=== PATIENT | female | born 1975 | race Caucasian/White ===

== ENCOUNTER 2016-12-31 11:22 | Inpatient (IN) | payer OTHER ==
[2016-12-31 11:38] VITALS: BMI 32.3
--- NOTE | 2016-12-31 13:37 | HP ---
Admission ROS [facility] Chief Complaint: "I want to get clean." Patient is here for Rehab for Alcohol and Cannabis. Allergies/Adverse Reactions: Allergies Allergy/AdvReac Type Severity Reaction Status Date / Time No Known Allergies Allergy Verified 12/31/16 12:53 Exam Limitations: No Limitations - Ebola screening Have you traveled outside of the country in the last 21 days: No Have you had contact with anyone from an Ebola affected area: No Have you been sick,other than usual withdrawal symptoms: No Do you have a fever: No - Review of Systems Constitutional: Chills, Diaphoresis, Fever, Malaise, Night Sweats, Changes in sleep EENT: reports: No Symptoms Reported Respiratory: reports: No Symptoms reported Cardiac: reports: Palpitations GI: reports: Other (GERD.) : reports: No Symptoms Reported Musculoskeletal: reports: Back Pain, Joint Pain, Neck Pain, Joint Stiffness Integumentary: reports: No Symptoms Reported Neuro: reports: Headache (Occasional.), Numbness (Bilateral Elbows.), Tremors ( Bilateral Elbows.) Endocrine: reports: No Symptoms Reported Hematology: reports: Anemia (Iron Deficiency.), Easy Bruising Psychiatric: reports: Judgement Intact, Mood/Affect Appropiate, Orientated x3, Anxious, Depressed (On meds.) Other Systems: Reviewed and Negative Patient History - Patient Medical History Hx Anemia: Yes (Iron-Deficency (Received infusions Q 3 months previously).) Hx Asthma: No Hx Chronic Obstructive Pulmonary Disease (COPD): No Hx Cancer: No Hx Cardiac Disorders: No Hx Congestive Heart Failure: No Hx Hypertension: Yes (On med.) Hx Hypercholesterolemia: Yes (On med.) Hx Pacemaker: No HX Cerebrovascular Accident: No Hx Seizures: No Hx Dementia: No Hx Diabetes: No Hx Gastrointestinal Disorders: Yes (acid reflux) Hx Liver Disease: No (History of Abnormal Liver Enzymers due to medications.) Hx Genitourinary Disorders: No Hx Sexually Transmitted Disorders: No Hx Renal Disease (ESRD): No Hx Thyroid Disease: No Hx Human Immunodeficiency Virus (HIV): No (Last Tested: 07/2016: NEGATIVE.) Hx Hepatitis C: No (Last Tested: 07/2016: NEGATIVE.) Hx Depression: Yes (On meds.) Hx Suicide Attempt: No (PATIENT DENIES CURRENT SI / HI.) Hx Bipolar Disorder: No Hx Schizophrenia: No Other Medical History: DENIES. - Patient Surgical History Past Surgical History: Yes Hx Neurologic Surgery: No Hx Cataract Extraction: No Hx Cardiac Surgery: No Hx Lung Surgery: No Hx Breast Surgery: No Hx Breast Biopsy: No Hx Abdominal Surgery: Yes (hysterectomy in 04/27/2014) Hx Appendectomy: Yes (in 10/1985) Hx Cholecystectomy: No Hx Genitourinary Surgery: No Hx Section: No Hx Orthopedic Surgery: No Anesthesia Reaction: No - PPD History Previous Implant?: Yes Documented Results: Negative w/o proof Implanted On Prior R Admission?: No PPD to be Administered?: Yes - Reproductive History Patient is a Female of Child Bearing Age (11 -55 yrs old): Yes Last Menstrual Period: 04/13/14 Patient : No - Smoking Cessation Smoking history: Current every day smoker Have you smoked in the past 12 months: Yes Aproximately how many cigarettes per day: 15 Cigars Per Day: 0 Hx Chewing Tobacco Use: No Initiated information on smoking cessation: Yes 'Breaking Loose' booklet given: 12/31/16 (GIVEN ON UNIT.) - Substance & Tx. History Hx Alcohol Use: Yes Hx Substance Use: Yes Substance Use Type: Alcohol, Marijuana Hx Substance Use Treatment: Yes (No Previous Detox/Rehab admissions. Attends [facility].) - Substances Abused Alcohol-beer/liquor Route: Oral Frequency: Daily Amount used: 1-6 pk./3 shots Age of first use: 19 Date of Last Use: 12/20/16 Marijuana Route: Smoking Frequency: Daily Amount used: $ 40 Age of first use: 19 Date of Last Use: 08/13/16 Family Disease History - Family Disease History Family Disease History: Diabetes: Grandparent (CHF), Heart Disease: Grandparent , CA: Grandparent, Father (Leukemia; Depression.), Mother (Breast Ca; Depression.), Brother (Pancreatic Ca.), Other: Father, Mother Admission Physical Exam [facility] - Vital Signs Vital Signs: Vital Signs - 24 hr 12/31/16 11:36 Temperature 98.9 F Pulse Rate 88 Respiratory 18 Rate Blood Pressure 133/80 - Physical General Appearance: Yes: No Apparent Distress, Nourished, Appropriately Dressed , Anxious HEENTM: Yes: Hearing grossly Normal, Normocephalic, Normal Voice, DESIREE, Pharynx Normal Respiratory: Yes: Chest Non-Tender, Lungs Clear, No Respiratory Distress, No Accessory Muscle Use Neck: Yes: No masses,lesions,Nodules, Supple, Trachea in good position Breast: Yes: Breast Exam Deferred Cardiology: Yes: Regular Rhythm, Regular Rate, S1, S2 Abdominal: Yes: Normal Bowel Sounds, Non Tender, Soft, Protuberent Genitourinary: Yes: Within Normal Limits Back: Yes: Decreased Range of Motion Musculoskeletal: Yes: Gait Steady, Back pain, Joint Stiffness Extremities: Yes: Normal Capillary Refill Neurological: Yes: Fully Oriented, Alert, Normal Mood/Affect, Normal Response Integumentary: Yes: Normal Color, Dry, Warm Lymphatic: Yes: Within Normal Limits - Diagnostic (1) Alcohol dependence, uncomplicated Current Visit: Yes Status: Chronic (2) Cannabis dependence, uncomplicated Current Visit: Yes Status: Chronic (3) Fibromyalgia Current Visit: Yes Status: Chronic (4) Hypertension Current Visit: Yes Status: Chronic Qualifiers: Hypertension type: essential hypertension Qualified Code(s): I10 - Essential (primary) hypertension (5) History of iron deficiency anemia Current Visit: Yes Status: Chronic (6) Hypercholesterolemia Current Visit: Yes Status: Chronic (7) GERD (gastroesophageal reflux disease) Current Visit: Yes Status: Chronic Qualifiers: Esophagitis presence: esophagitis presence not specified Qualified Code(s) : K21.9 - Gastro-esophageal reflux disease without esophagitis (8) History of depression Current Visit: Yes Status: Chronic (9) Elevated blood uric acid level Current Visit: Yes Status: Chronic Cleared for Admission S - Detox or Rehab Claeared for Rehab Admission: Yes [facility] Breath Alcohol Content Breath Alcohol Content: 0 Urine Pregancy Test - Result Urine Test Results: Negative- NO Line Present Urine Drug Screen - Results Drug Screen Negative: Yes
[2016-12-31] MEDS ORDERED: LOPERAMIDE HCL 2 MG CAPSULE PO PRN (14:05)
[2016-12-31] MEDS ORDERED: MAGNESIUM CITRATE 300 ML BOTTLE PO PRN (14:05)
[2016-12-31] MEDS ORDERED: P-EPHED 60MG/TRIPROLIDI 2.5MG TABLET PO PRN (14:05)
[2016-12-31] MEDS ORDERED: MENTHOL/PHENOL 1 EACH UD MM PRN (14:05)
[2016-12-31] MEDS ORDERED: hydrOXYzine PAMOATE 25 MG CAPSULE (FP) PO PRN (14:05)
[2016-12-31] MEDS ORDERED: MAGNESIUM HYDROX 2400MG/30ML ORAL SUSPENSION 30 ML CUP PO PRN (14:05)
[2016-12-31] MEDS ORDERED: guaiFENesin/D-METHORPHAN HB 10 ML UNIT-DOSE CUPS PO PRN (14:05)
[2016-12-31] MEDS ORDERED: IBUPROFEN 400 MG TABLET (FP) PO PRN (14:05)
--- NOTE | 2016-12-31 15:48 | HP ---
Psychiatrist Admission - Data Date of interview: 12/31/16 Admission source: Drug court Identifying data: This is the first admission to [address] [place] [address] for this 41 YEARS OLD CHILDLESS FEMALE,RESIDES WITH PARENTS,SUPPORTED Y FAMILY. Medical History: Significant for Anemia,HTN,Fibromialgia,Hyperlipidemia. Psychiatric History: Patient reports first contact with psychiatrist about 15 years ago on outpatient basis to address depression,drinking problems.No suicidal attempts,no psychiatric admisssions.Patient sees psychiatrist at [facility].Medications:Buspar,Zoloft and Seroquel. Physical/Sexual Abuse/Trauma History: denies Vital Signs: Vital Signs - 24 hr 12/31/16 12/31/16 11:36 15:05 Temperature 98.9 F 97.8 F Pulse Rate 88 86 Respiratory 18 19 Rate Blood Pressure 133/80 118/82 Allergies/Adverse Reactions: Allergies Allergy/AdvReac Type Severity Reaction Status Date / Time No Known Allergies Allergy Verified 12/31/16 12:53 Date of last physical exam: 12/31/16 Concur with the findings of this exam: Yes - Substance Abuse/Tx History Hx Alcohol Use: Yes (reports drinking since 19 yo,1-6 packs and 3 shots daily) Hx Substance Use: Yes (marijuana since 19 yo,$40 daily) Substance Use Type: Alcohol, Marijuana Hx Substance Use Treatment: Yes ([facility]) Mental Status Exam - Mental Status Exam Alert and Oriented to: Time, Place, Person Cognitive Function: Grossly Intact Patient Appearance: Well Groomed Mood: Sad Affect: Mood Congruent Patient Behavior: Cooperative Speech Pattern: Clear Voice Loudness: Normal Thought Process: Goal Oriented Thought Disorder: Not Present Hallucinations: Denies Suicidal Ideation: Denies Homicidal Ideation: Denies Insight/Judgement: Fair Sleep: Fair Appetite: Good Muscle strength/Tone: Normal Gait/Station: Normal Psychiatric Findings - Problem List ([place] 1, 2,3) (1) Alcohol dependence, uncomplicated Current Visit: Yes Status: Chronic (2) Cannabis dependence, uncomplicated Current Visit: Yes Status: Chronic (3) Fibromyalgia Current Visit: Yes Status: Chronic (4) GERD (gastroesophageal reflux disease) Current Visit: Yes Status: Chronic Qualifiers: Esophagitis presence: esophagitis presence not specified Qualified Code(s) : K21.9 - Gastro-esophageal reflux disease without esophagitis (5) History of iron deficiency anemia Current Visit: Yes Status: Chronic (6) Hypercholesterolemia Current Visit: Yes Status: Chronic (7) Substance induced mood disorder Current Visit: Yes Status: Chronic (8) Hypertension Current Visit: Yes Status: Chronic Qualifiers: Hypertension type: essential hypertension Qualified Code(s): I10 - Essential (primary) hypertension - Initial Treatment Plan Initial Treatment Plan: Continue Zoloft 150 mg po daily,Seroquel 50 mg po hs and Buspar 15 mg po bid.Will monitor progress.
[2016-12-31] MEDS: NICOTINE 21 MG/24 HOURS TOPICAL PATCH TD SCH (15:54)
[2016-12-31 18:47] LABS: URINE APPEARANCE CLEAR; URINE BILIRUBIN NEGATIVE (NEGATIVE); URINE BLOOD NEGATIVE (NEGATIVE); URINE COLOR AMBER; URINE GLUCOSE (UA) NEGATIVE (NEGATIVE); URINE KETONE NEGATIVE (NEGATIVE); URINE NITRITE NEGATIVE (NEGATIVE); URINE PROTEIN NEGATIVE (NEGATIVE); URINE UROBILINOGEN NEGATIVE mg/dL (0.2-1.0)
[2016-12-31 21:11] LABS: URINE LEUK ESTERASE Negative (NEGATIVE)
[2016-12-31] MEDS: THIAMINE HCL 100 MG TABLET (FP) PO SCH (21:24)
[2016-12-31] MEDS: rOPINIRole HCL 1 MG TABLET (FP) PO SCH (21:25)
[2016-12-31] MEDS: sulfaSALAzine 500 MG TABLET PO SCH (21:26)
[2016-12-31] MEDS: QUEtiapine FUMARATE 50 MG TABLET PO SCH (21:27)
[2016-12-31] MEDS: GABAPENTIN 300 MG CAPSULE (FP) PO SCH (21:28)
[2016-12-31] MEDS: ATORVASTATIN CA 10 MG TABLET (FP) PO SCH (21:28)
[2016-12-31] MEDS: NABUMETONE 500 MG TABLET PO SCH (21:29)
[2017-01-01] MEDS: GABAPENTIN 300 MG CAPSULE (FP) PO SCH ×3 (06:25→21:39)
[2017-01-01] MEDS: NICOTINE 21 MG/24 HOURS TOPICAL PATCH TD SCH (09:48)
[2017-01-01] MEDS: sulfaSALAzine 500 MG TABLET PO SCH ×2 (09:48→21:39)
[2017-01-01] MEDS: PRENATAL VITAMINS W/ FOLIC ACID TABLET (FP) PO SCH (09:49)
[2017-01-01] MEDS: NABUMETONE 500 MG TABLET PO SCH ×2 (09:49→21:40)
[2017-01-01] MEDS: amLODIPine BESYLATE 5 MG TABLET (FP) PO SCH (09:49)
[2017-01-01] MEDS: PANTOPRAZOLE 20 MG TABLET (FP) PO SCH (09:49)
[2017-01-01] MEDS: SERTRALINE HCL 50 MG TABLET (FP) PO SCH (09:50)
[2017-01-01] MEDS: ALLOPURINOL 300 MG TABLET (FP) PO SCH (09:51)
[2017-01-01] MEDS ORDERED: PT OWN MED DRAWER 7, Y5N ONE ×3 (09:51→19:42)
[2017-01-01 10:11] LABS: MCH 28.2 pg (25.7-33.7); MEAN CELL VOLUME 88.1 fl (80-96); MEAN PLT VOLUME 8.2 fl (7.5-11.1); PLATELET COUNT 273 K/MM3 (134-434); RDW 28.2 % (11.6-15.6); WHITE BLOOD COUNT 6.4 K/mm3 (4.0-10.0)
[2017-01-01 10:25] LABS: ALBUMIN 3.9 g/dl (3.4-5.0); ANION GAP 5 (8-16); CALCIUM 8.7 mg/dL (8.5-10.1); CO2 28 mmol/L (21-32)
[2017-01-01 10:29] LABS: ALK PHOS 107 U/L (45-117); BILIRUBIN,TOTAL 0.6 mg/dL (0.2-1.0); CREATININE 0.8 mg/dL (0.55-1.02); GLUCOSE,RANDOM 128 mg/dL (74-106); SGPT/ALT 45 U/L (12-78); TOT PROT 7.3 g/dl (6.4-8.2)
[2017-01-01 10:35] LABS: SGOT/AST 28 U/L (15-37)
[2017-01-01] MEDS ORDERED: QUEtiapine FUMARATE 25 MG TABLET (FP) ONE (19:41)
[2017-01-01] MEDS: THIAMINE HCL 100 MG TABLET (FP) PO SCH (21:38)
[2017-01-01] MEDS: ATORVASTATIN CA 10 MG TABLET (FP) PO SCH (21:39)
[2017-01-01] MEDS: rOPINIRole HCL 1 MG TABLET (FP) PO SCH (21:40)
[2017-01-01] MEDS: QUEtiapine FUMARATE 50 MG TABLET PO SCH (21:41)
--- NOTE | 2017-01-01 22:27 | EKG ---
Test Reason : Blood Pressure : / mmHG Vent. Rate : 083 BPM Atrial Rate : 083 BPM P-R Int : 178 ms QRS Dur : 080 ms QT Int : 380 ms P-R-T Axes : 072 086 076 degrees QTc Int : 446 ms NORMAL SINUS RHYTHM NORMAL ECG NO PREVIOUS ECGS AVAILABLE Confirmed by RAVEN HARVEY MD ([id number]) on 01/01/2017 10:27:17 PM Referred By: CRISTY NOBLES Confirmed By:RAVEN HARVEY MD
[2017-01-02] MEDS: GABAPENTIN 300 MG CAPSULE (FP) PO SCH ×3 (06:22→21:32)
[2017-01-02] MEDS ORDERED: PT OWN MED DRAWER 7, Y5N ONE ×2 (08:47→19:33)
[2017-01-02] MEDS: NICOTINE 21 MG/24 HOURS TOPICAL PATCH TD SCH (10:06)
[2017-01-02] MEDS: NABUMETONE 500 MG TABLET PO SCH ×2 (10:07→21:32)
[2017-01-02] MEDS: ALLOPURINOL 300 MG TABLET (FP) PO SCH (10:07)
[2017-01-02] MEDS: amLODIPine BESYLATE 5 MG TABLET (FP) PO SCH (10:08)
[2017-01-02] MEDS: PANTOPRAZOLE 20 MG TABLET (FP) PO SCH (10:08)
[2017-01-02] MEDS: SERTRALINE HCL 50 MG TABLET (FP) PO SCH (10:08)
[2017-01-02] MEDS: sulfaSALAzine 500 MG TABLET PO SCH ×2 (10:08→21:34)
[2017-01-02] MEDS: PRENATAL VITAMINS W/ FOLIC ACID TABLET (FP) PO SCH (10:08)
[2017-01-02] MEDS: MAG HYDROX/AL HYDROX/SIMETH 30 ML UNIT-DOSE CUP PO PRN (15:28)
[2017-01-02] MEDS: QUEtiapine FUMARATE 50 MG TABLET PO SCH (21:32)
[2017-01-02] MEDS: ATORVASTATIN CA 10 MG TABLET (FP) PO SCH (21:32)
[2017-01-02] MEDS: rOPINIRole HCL 1 MG TABLET (FP) PO SCH (21:33)
[2017-01-02] MEDS: THIAMINE HCL 100 MG TABLET (FP) PO SCH (21:56)
[2017-01-03] MEDS: GABAPENTIN 300 MG CAPSULE (FP) PO SCH ×3 (06:38→21:52)
[2017-01-03] MEDS ORDERED: PT OWN MED DRAWER 7, Y5N ONE (08:30)
[2017-01-03] MEDS: NABUMETONE 500 MG TABLET PO SCH ×2 (09:50→21:52)
[2017-01-03] MEDS: sulfaSALAzine 500 MG TABLET PO SCH ×2 (09:50→21:55)
[2017-01-03] MEDS: SERTRALINE HCL 50 MG TABLET (FP) PO SCH (09:51)
[2017-01-03] MEDS: amLODIPine BESYLATE 5 MG TABLET (FP) PO SCH (09:51)
[2017-01-03] MEDS: PANTOPRAZOLE 20 MG TABLET (FP) PO SCH (09:51)
[2017-01-03] MEDS: ALLOPURINOL 300 MG TABLET (FP) PO SCH (09:51)
[2017-01-03] MEDS: PRENATAL VITAMINS W/ FOLIC ACID TABLET (FP) PO SCH (09:51)
[2017-01-03] MEDS: NICOTINE 21 MG/24 HOURS TOPICAL PATCH TD SCH (09:52)
[2017-01-03] MEDS: THIAMINE HCL 100 MG TABLET (FP) PO SCH (21:52)
[2017-01-03] MEDS: QUEtiapine FUMARATE 50 MG TABLET PO SCH (21:52)
[2017-01-03] MEDS: ATORVASTATIN CA 10 MG TABLET (FP) PO SCH (21:52)
[2017-01-03] MEDS: rOPINIRole HCL 1 MG TABLET (FP) PO SCH (21:55)
[2017-01-04] MEDS: GABAPENTIN 300 MG CAPSULE (FP) PO SCH ×3 (06:35→21:32)
[2017-01-04] MEDS ORDERED: PT OWN MED DRAWER 7, Y5N ONE (08:35)
[2017-01-04] MEDS: NABUMETONE 500 MG TABLET PO SCH ×2 (09:57→21:32)
[2017-01-04] MEDS: PRENATAL VITAMINS W/ FOLIC ACID TABLET (FP) PO SCH (09:58)
[2017-01-04] MEDS: amLODIPine BESYLATE 5 MG TABLET (FP) PO SCH (09:58)
[2017-01-04] MEDS: SERTRALINE HCL 50 MG TABLET (FP) PO SCH (09:58)
[2017-01-04] MEDS: ALLOPURINOL 300 MG TABLET (FP) PO SCH (09:58)
[2017-01-04] MEDS: PANTOPRAZOLE 20 MG TABLET (FP) PO SCH (09:58)
[2017-01-04] MEDS: NICOTINE 21 MG/24 HOURS TOPICAL PATCH TD SCH (09:59)
[2017-01-04] MEDS: sulfaSALAzine 500 MG TABLET PO SCH ×2 (10:00→21:33)
[2017-01-04] MEDS: THIAMINE HCL 100 MG TABLET (FP) PO SCH (21:32)
[2017-01-04] MEDS: ATORVASTATIN CA 10 MG TABLET (FP) PO SCH (21:32)
[2017-01-04] MEDS: rOPINIRole HCL 1 MG TABLET (FP) PO SCH (21:33)
[2017-01-04] MEDS: QUEtiapine FUMARATE 50 MG TABLET PO SCH (21:34)
[2017-01-05] MEDS: GABAPENTIN 300 MG CAPSULE (FP) PO SCH ×3 (06:45→21:31)
[2017-01-05] MEDS ORDERED: PT OWN MED DRAWER 7, Y5N ONE ×3 (08:52→21:50)
[2017-01-05] MEDS: ALLOPURINOL 300 MG TABLET (FP) PO SCH (10:00)
[2017-01-05] MEDS: SERTRALINE HCL 50 MG TABLET (FP) PO SCH (10:00)
[2017-01-05] MEDS: PANTOPRAZOLE 20 MG TABLET (FP) PO SCH (10:00)
[2017-01-05] MEDS: amLODIPine BESYLATE 5 MG TABLET (FP) PO SCH (10:00)
[2017-01-05] MEDS: PRENATAL VITAMINS W/ FOLIC ACID TABLET (FP) PO SCH (10:00)
[2017-01-05] MEDS: ERGOCALCIFEROL (VITAMIN D2) 50,000 UNIT CAPSULE (FP) PO SCH (10:01)
[2017-01-05] MEDS: NICOTINE 21 MG/24 HOURS TOPICAL PATCH TD SCH (10:01)
[2017-01-05] MEDS: sulfaSALAzine 500 MG TABLET PO SCH ×2 (10:02→21:33)
[2017-01-05] MEDS: NABUMETONE 500 MG TABLET PO SCH ×2 (10:02→21:32)
[2017-01-05] MEDS: ACETAMINOPHEN 325 MG TABLET (FP) PO PRN (13:31)
[2017-01-05] MEDS: ATORVASTATIN CA 10 MG TABLET (FP) PO SCH (21:31)
[2017-01-05] MEDS: QUEtiapine FUMARATE 50 MG TABLET PO SCH (21:31)
[2017-01-05] MEDS: rOPINIRole HCL 1 MG TABLET (FP) PO SCH (21:32)
[2017-01-05] MEDS: THIAMINE HCL 100 MG TABLET (FP) PO SCH (21:33)
[2017-01-06] MEDS: GABAPENTIN 300 MG CAPSULE (FP) PO SCH ×3 (07:00→21:24)
[2017-01-06] MEDS: ACETAMINOPHEN 325 MG TABLET (FP) PO PRN (07:01)
[2017-01-06] MEDS ORDERED: PT OWN MED DRAWER 7, Y5N ONE ×3 (08:37→19:43)
[2017-01-06] MEDS: ALLOPURINOL 300 MG TABLET (FP) PO SCH (10:08)
[2017-01-06] MEDS: PRENATAL VITAMINS W/ FOLIC ACID TABLET (FP) PO SCH (10:08)
[2017-01-06] MEDS: SERTRALINE HCL 50 MG TABLET (FP) PO SCH (10:08)
[2017-01-06] MEDS: amLODIPine BESYLATE 5 MG TABLET (FP) PO SCH (10:08)
[2017-01-06] MEDS: PANTOPRAZOLE 20 MG TABLET (FP) PO SCH (10:08)
[2017-01-06] MEDS: NABUMETONE 500 MG TABLET PO SCH ×2 (10:08→21:25)
[2017-01-06] MEDS: NICOTINE 21 MG/24 HOURS TOPICAL PATCH TD SCH (10:10)
[2017-01-06] MEDS: sulfaSALAzine 500 MG TABLET PO SCH ×2 (10:10→21:25)
[2017-01-06] MEDS: QUEtiapine FUMARATE 50 MG TABLET PO SCH (21:24)
[2017-01-06] MEDS: THIAMINE HCL 100 MG TABLET (FP) PO SCH (21:24)
[2017-01-06] MEDS: ATORVASTATIN CA 10 MG TABLET (FP) PO SCH (21:24)
[2017-01-06] MEDS: rOPINIRole HCL 1 MG TABLET (FP) PO SCH (21:26)
[2017-01-07] MEDS: GABAPENTIN 300 MG CAPSULE (FP) PO SCH ×3 (06:36→21:21)
[2017-01-07] MEDS: amLODIPine BESYLATE 5 MG TABLET (FP) PO SCH (09:51)
[2017-01-07] MEDS: SERTRALINE HCL 50 MG TABLET (FP) PO SCH (09:51)
[2017-01-07] MEDS: PANTOPRAZOLE 20 MG TABLET (FP) PO SCH (09:51)
[2017-01-07] MEDS: ALLOPURINOL 300 MG TABLET (FP) PO SCH (09:51)
[2017-01-07] MEDS: NABUMETONE 500 MG TABLET PO SCH ×2 (09:52→21:22)
[2017-01-07] MEDS: PRENATAL VITAMINS W/ FOLIC ACID TABLET (FP) PO SCH (09:52)
[2017-01-07] MEDS: sulfaSALAzine 500 MG TABLET PO SCH ×2 (09:52→21:21)
[2017-01-07] MEDS: NICOTINE 21 MG/24 HOURS TOPICAL PATCH TD SCH (09:53)
[2017-01-07] MEDS: ACETAMINOPHEN 325 MG TABLET (FP) PO PRN (10:59)
[2017-01-07] MEDS ORDERED: PT OWN MED DRAWER 7, Y5N ONE (15:14)
[2017-01-07] MEDS: ATORVASTATIN CA 10 MG TABLET (FP) PO SCH (21:20)
[2017-01-07] MEDS: THIAMINE HCL 100 MG TABLET (FP) PO SCH (21:20)
[2017-01-07] MEDS: QUEtiapine FUMARATE 50 MG TABLET PO SCH (21:20)
[2017-01-07] MEDS: rOPINIRole HCL 1 MG TABLET (FP) PO SCH (21:22)
[2017-01-08] MEDS: GABAPENTIN 300 MG CAPSULE (FP) PO SCH ×3 (07:08→21:17)
[2017-01-08] MEDS: ACETAMINOPHEN 325 MG TABLET (FP) PO PRN (07:08)
[2017-01-08] MEDS ORDERED: PT OWN MED DRAWER 7, Y5N ONE ×2 (08:42→19:33)
[2017-01-08] MEDS: NABUMETONE 500 MG TABLET PO SCH ×2 (10:07→21:18)
[2017-01-08] MEDS: sulfaSALAzine 500 MG TABLET PO SCH ×2 (10:07→21:17)
[2017-01-08] MEDS: SERTRALINE HCL 50 MG TABLET (FP) PO SCH (10:08)
[2017-01-08] MEDS: amLODIPine BESYLATE 5 MG TABLET (FP) PO SCH (10:09)
[2017-01-08] MEDS: ALLOPURINOL 300 MG TABLET (FP) PO SCH (10:09)
[2017-01-08] MEDS: PRENATAL VITAMINS W/ FOLIC ACID TABLET (FP) PO SCH (10:09)
[2017-01-08] MEDS: NICOTINE 21 MG/24 HOURS TOPICAL PATCH TD SCH (10:10)
[2017-01-08] MEDS: PANTOPRAZOLE 20 MG TABLET (FP) PO SCH (10:12)
[2017-01-08] MEDS: HYDROCORTISONE 2.5% TOPICAL CREAM 30 GM TUBE PR SCH ×2 (15:22→21:17)
[2017-01-08] MEDS: LIDOCAINE 5% TOPICAL PATCH TP SCH (15:22)
[2017-01-08] MEDS: ATORVASTATIN CA 10 MG TABLET (FP) PO SCH (21:17)
[2017-01-08] MEDS: DOCUSATE SODIUM 100 MG CAPSULE (FP) PO SCH (21:18)
[2017-01-08] MEDS: THIAMINE HCL 100 MG TABLET (FP) PO SCH (21:19)
[2017-01-08] MEDS: QUEtiapine FUMARATE 50 MG TABLET PO SCH (21:19)
[2017-01-08] MEDS: rOPINIRole HCL 1 MG TABLET (FP) PO SCH (21:19)
[2017-01-08] MEDS: LIDOCAINE PATCH REMOVAL MC SCH (22:13)
[2017-01-09] MEDS: GABAPENTIN 300 MG CAPSULE (FP) PO SCH ×3 (06:59→21:30)
[2017-01-09] MEDS ORDERED: PT OWN MED DRAWER 7, Y5N ONE ×2 (08:34→10:10)
[2017-01-09] MEDS: LIDOCAINE 5% TOPICAL PATCH TP SCH (10:06)
[2017-01-09] MEDS: ALLOPURINOL 300 MG TABLET (FP) PO SCH (10:06)
[2017-01-09] MEDS: PRENATAL VITAMINS W/ FOLIC ACID TABLET (FP) PO SCH (10:07)
[2017-01-09] MEDS: PANTOPRAZOLE 40 MG TABLET (FP) PO SCH (10:07)
[2017-01-09] MEDS: SERTRALINE HCL 50 MG TABLET (FP) PO SCH (10:07)
[2017-01-09] MEDS: amLODIPine BESYLATE 5 MG TABLET (FP) PO SCH (10:07)
[2017-01-09] MEDS: sulfaSALAzine 500 MG TABLET PO SCH ×2 (10:11→21:31)
[2017-01-09] MEDS: NABUMETONE 500 MG TABLET PO SCH ×2 (10:45→21:32)
[2017-01-09] MEDS: NICOTINE 21 MG/24 HOURS TOPICAL PATCH TD SCH (10:45)
[2017-01-09] MEDS: MAG HYDROX/AL HYDROX/SIMETH 30 ML UNIT-DOSE CUP PO PRN (14:58)
[2017-01-09] MEDS: HYDROCORTISONE 2.5% TOPICAL CREAM 30 GM TUBE PR SCH (21:29)
[2017-01-09] MEDS: DOCUSATE SODIUM 100 MG CAPSULE (FP) PO SCH (21:30)
[2017-01-09] MEDS: LIDOCAINE PATCH REMOVAL MC SCH (21:30)
[2017-01-09] MEDS: ATORVASTATIN CA 10 MG TABLET (FP) PO SCH (21:30)
[2017-01-09] MEDS: THIAMINE HCL 100 MG TABLET (FP) PO SCH (21:30)
[2017-01-09] MEDS: QUEtiapine FUMARATE 50 MG TABLET PO SCH (21:31)
[2017-01-09] MEDS: rOPINIRole HCL 1 MG TABLET (FP) PO SCH (21:32)
[2017-01-10] MEDS: GABAPENTIN 300 MG CAPSULE (FP) PO SCH ×3 (06:55→21:16)
[2017-01-10] MEDS ORDERED: PT OWN MED DRAWER 7, Y5N ONE ×3 (08:21→19:56)
[2017-01-10] MEDS: NABUMETONE 500 MG TABLET PO SCH ×2 (09:48→21:17)
[2017-01-10] MEDS: sulfaSALAzine 500 MG TABLET PO SCH ×2 (09:48→21:17)
[2017-01-10] MEDS: PRENATAL VITAMINS W/ FOLIC ACID TABLET (FP) PO SCH (09:49)
[2017-01-10] MEDS: PANTOPRAZOLE 40 MG TABLET (FP) PO SCH (09:49)
[2017-01-10] MEDS: SERTRALINE HCL 50 MG TABLET (FP) PO SCH (09:49)
[2017-01-10] MEDS: amLODIPine BESYLATE 5 MG TABLET (FP) PO SCH (09:49)
[2017-01-10] MEDS: ALLOPURINOL 300 MG TABLET (FP) PO SCH (09:50)
[2017-01-10] MEDS: NICOTINE 21 MG/24 HOURS TOPICAL PATCH TD SCH (09:50)
[2017-01-10] MEDS: LIDOCAINE 5% TOPICAL PATCH TP SCH (09:50)
[2017-01-10] MEDS: THIAMINE HCL 100 MG TABLET (FP) PO SCH (21:15)
[2017-01-10] MEDS: DOCUSATE SODIUM 100 MG CAPSULE (FP) PO SCH (21:15)
[2017-01-10] MEDS: QUEtiapine FUMARATE 50 MG TABLET PO SCH (21:15)
[2017-01-10] MEDS: ATORVASTATIN CA 10 MG TABLET (FP) PO SCH (21:15)
[2017-01-10] MEDS: rOPINIRole HCL 1 MG TABLET (FP) PO SCH (21:18)
[2017-01-10] MEDS: LIDOCAINE PATCH REMOVAL MC SCH (21:19)
[2017-01-10] MEDS: HYDROCORTISONE 2.5% TOPICAL CREAM 30 GM TUBE PR SCH (21:19)
[2017-01-11] MEDS: GABAPENTIN 300 MG CAPSULE (FP) PO SCH ×3 (06:46→21:22)
[2017-01-11] MEDS ORDERED: PT OWN MED DRAWER 7, Y5N ONE ×2 (08:17→21:58)
[2017-01-11] MEDS: sulfaSALAzine 500 MG TABLET PO SCH ×2 (10:09→21:20)
[2017-01-11] MEDS: NABUMETONE 500 MG TABLET PO SCH ×2 (10:10→21:20)
[2017-01-11] MEDS: LIDOCAINE 5% TOPICAL PATCH TP SCH (10:10)
[2017-01-11] MEDS: PRENATAL VITAMINS W/ FOLIC ACID TABLET (FP) PO SCH (10:11)
[2017-01-11] MEDS: ALLOPURINOL 300 MG TABLET (FP) PO SCH (10:11)
[2017-01-11] MEDS: SERTRALINE HCL 50 MG TABLET (FP) PO SCH (10:11)
[2017-01-11] MEDS: NICOTINE 21 MG/24 HOURS TOPICAL PATCH TD SCH (10:12)
[2017-01-11] MEDS: amLODIPine BESYLATE 5 MG TABLET (FP) PO SCH (10:12)
[2017-01-11] MEDS: PANTOPRAZOLE 40 MG TABLET (FP) PO SCH (10:12)
[2017-01-11] MEDS: rOPINIRole HCL 1 MG TABLET (FP) PO SCH (21:20)
[2017-01-11] MEDS: QUEtiapine FUMARATE 50 MG TABLET PO SCH (21:21)
[2017-01-11] MEDS: DOCUSATE SODIUM 100 MG CAPSULE (FP) PO SCH (21:22)
[2017-01-11] MEDS: THIAMINE HCL 100 MG TABLET (FP) PO SCH (21:22)
[2017-01-11] MEDS: ATORVASTATIN CA 10 MG TABLET (FP) PO SCH (21:23)
[2017-01-11] MEDS: HYDROCORTISONE 2.5% TOPICAL CREAM 30 GM TUBE PR SCH (21:23)
[2017-01-11] MEDS: LIDOCAINE PATCH REMOVAL MC SCH (21:23)
[2017-01-12] MEDS: GABAPENTIN 300 MG CAPSULE (FP) PO SCH ×3 (06:20→21:24)
[2017-01-12] MEDS ORDERED: PT OWN MED DRAWER 7, Y5N ONE ×2 (08:13→17:05)
[2017-01-12] MEDS: ERGOCALCIFEROL (VITAMIN D2) 50,000 UNIT CAPSULE (FP) PO SCH (09:58)
[2017-01-12] MEDS: NABUMETONE 500 MG TABLET PO SCH ×2 (09:58→21:22)
[2017-01-12] MEDS: LIDOCAINE 5% TOPICAL PATCH TP SCH (09:58)
[2017-01-12] MEDS: NICOTINE 21 MG/24 HOURS TOPICAL PATCH TD SCH (09:59)
[2017-01-12] MEDS: ALLOPURINOL 300 MG TABLET (FP) PO SCH (09:59)
[2017-01-12] MEDS: PRENATAL VITAMINS W/ FOLIC ACID TABLET (FP) PO SCH (09:59)
[2017-01-12] MEDS: amLODIPine BESYLATE 5 MG TABLET (FP) PO SCH (09:59)
[2017-01-12] MEDS: SERTRALINE HCL 50 MG TABLET (FP) PO SCH (09:59)
[2017-01-12] MEDS: sulfaSALAzine 500 MG TABLET PO SCH ×2 (09:59→21:22)
[2017-01-12] MEDS: PANTOPRAZOLE 40 MG TABLET (FP) PO SCH (09:59)
[2017-01-12] MEDS: HYDROCORTISONE 2.5% TOPICAL CREAM 30 GM TUBE PR SCH (21:21)
[2017-01-12] MEDS: rOPINIRole HCL 1 MG TABLET (FP) PO SCH (21:22)
[2017-01-12] MEDS: THIAMINE HCL 100 MG TABLET (FP) PO SCH (21:23)
[2017-01-12] MEDS: DOCUSATE SODIUM 100 MG CAPSULE (FP) PO SCH (21:23)
[2017-01-12] MEDS: ATORVASTATIN CA 10 MG TABLET (FP) PO SCH (21:24)
[2017-01-12] MEDS: LIDOCAINE PATCH REMOVAL MC SCH (21:24)
[2017-01-12] MEDS: QUEtiapine FUMARATE 50 MG TABLET PO SCH (21:24)
[2017-01-13] MEDS: GABAPENTIN 300 MG CAPSULE (FP) PO SCH ×3 (06:36→21:23)
[2017-01-13] MEDS ORDERED: PT OWN MED DRAWER 7, Y5N ONE ×2 (08:49→21:26)
[2017-01-13] MEDS: LIDOCAINE 5% TOPICAL PATCH TP SCH (09:55)
[2017-01-13] MEDS: NABUMETONE 500 MG TABLET PO SCH ×2 (09:56→21:26)
[2017-01-13] MEDS: sulfaSALAzine 500 MG TABLET PO SCH ×2 (09:56→21:27)
[2017-01-13] MEDS: NICOTINE 21 MG/24 HOURS TOPICAL PATCH TD SCH (09:56)
[2017-01-13] MEDS: SERTRALINE HCL 50 MG TABLET (FP) PO SCH (09:57)
[2017-01-13] MEDS: PRENATAL VITAMINS W/ FOLIC ACID TABLET (FP) PO SCH (09:57)
[2017-01-13] MEDS: ALLOPURINOL 300 MG TABLET (FP) PO SCH (09:57)
[2017-01-13] MEDS: PANTOPRAZOLE 40 MG TABLET (FP) PO SCH (09:58)
[2017-01-13] MEDS: amLODIPine BESYLATE 5 MG TABLET (FP) PO SCH (09:58)
[2017-01-13] MEDS: ATORVASTATIN CA 10 MG TABLET (FP) PO SCH (21:23)
[2017-01-13] MEDS: THIAMINE HCL 100 MG TABLET (FP) PO SCH (21:23)
[2017-01-13] MEDS: DOCUSATE SODIUM 100 MG CAPSULE (FP) PO SCH (21:23)
[2017-01-13] MEDS: HYDROCORTISONE 2.5% TOPICAL CREAM 30 GM TUBE PR SCH (21:24)
[2017-01-13] MEDS: QUEtiapine FUMARATE 50 MG TABLET PO SCH (21:24)
[2017-01-13] MEDS: LIDOCAINE PATCH REMOVAL MC SCH (21:24)
[2017-01-13] MEDS: rOPINIRole HCL 1 MG TABLET (FP) PO SCH (21:26)
[2017-01-14] MEDS: GABAPENTIN 300 MG CAPSULE (FP) PO SCH (06:54)
[2017-01-14] MEDS: sulfaSALAzine 500 MG TABLET PO SCH ×2 (10:02→21:27)
[2017-01-14] MEDS: NABUMETONE 500 MG TABLET PO SCH (10:02)
[2017-01-14] MEDS: LIDOCAINE 5% TOPICAL PATCH TP SCH (10:02)
[2017-01-14] MEDS: PANTOPRAZOLE 40 MG TABLET (FP) PO SCH (10:04)
[2017-01-14] MEDS: amLODIPine BESYLATE 5 MG TABLET (FP) PO SCH (10:04)
[2017-01-14] MEDS: ALLOPURINOL 300 MG TABLET (FP) PO SCH (10:04)
[2017-01-14] MEDS: SERTRALINE HCL 50 MG TABLET (FP) PO SCH (10:04)
[2017-01-14] MEDS: PRENATAL VITAMINS W/ FOLIC ACID TABLET (FP) PO SCH (10:04)
[2017-01-14] MEDS: NICOTINE 21 MG/24 HOURS TOPICAL PATCH TD SCH (10:35)
[2017-01-14] MEDS ORDERED: PT OWN MED DRAWER 7, Y5N ONE ×2 (10:39)
--- NOTE | 2017-01-14 10:54 | PN ---
Psychiatric Progress Note Vital Signs: Vital Signs Period Temp Pulse Resp BP Sys/Monreal Pulse Ox Last 24 Hr 97.9 F 83-89 18-18 119-126/79-81 Date of Session: 01/14/17 Chief Complaint:: Aaron having sleeping difficulties." HPI: Patient addressed Alcohol and Cannabis dependence comorbid with Substance induced mood disorder. ROS: HTN,Fibromialgia,Hyperlipidemia.Anemia. Current Medications: Active Medications Generic Name Dose Route Start Last Admin Trade Name Freq PRN Reason Stop Dose Admin Acetaminophen 650 mg 12/31/16 14:05 01/08/17 07:08 Tylenol - PO 650 mg Q4H PRN Administration PAIN Al Hydroxide/Mg Hydroxide 30 ml 12/31/16 14:05 01/09/17 14:58 Mylanta Oral Suspension - PO 30 ml Q6H PRN Administration DYSPEPSIA Allopurinol 300 mg 01/01/17 10:00 01/14/17 10:04 Zyloprim - PO 300 mg DAILY REINIER Administration Amlodipine Besylate 5 mg 01/01/17 10:00 01/14/17 10:04 Norvasc - PO 5 mg DAILY REINIER Administration Atorvastatin Calcium 10 mg 12/31/16 22:00 01/13/17 21:23 Lipitor - PO 10 mg HS REINIER Administration Buspirone HCl 15 mg 12/31/16 15:30 01/14/17 10:04 Buspar - PO 15 mg BID REINIER Administration Docusate Sodium 300 mg 01/08/17 22:00 01/13/17 21:23 Colace - PO 300 mg HS REINIER Administration Ergocalciferol 50,000 unit 01/05/17 10:00 01/12/17 09:58 Drisdol - PO 50,000 unit Mo@1000 REINIER Administration Eucalyptus/Menthol/Phenol/Sorbitol 1 each 12/31/16 14:05 Cepastat Lozenge - MM Q4H PRN SORE THROAT Gabapentin 300 mg 12/31/16 22:00 01/14/17 06:54 Neurontin - PO 300 mg TID REINIER Administration Guaifenesin 10 ml 12/31/16 14:05 Robitussin Dm - PO Q6H PRN COUGH Hydrocortisone 1 applic 01/08/17 14:15 01/13/17 21:24 Anusol 2.5% Hc Cream - MD Not Given HS REINIER Hydroxyzine Pamoate 25 mg 12/31/16 14:05 Vistaril - PO Q4H PRN AGITATION Lidocaine 2 patch 01/08/17 14:15 01/14/17 10:02 Lidoderm Patch - TP 2 patch DAILY REINIER Administration Loperamide HCl 4 mg 12/31/16 14:05 Imodium - PO Q6H PRN DIARRHEA Magnesium Citrate 300 ml 12/31/16 14:05 Citroma - PO Q48H PRN CONSTIPATION Magnesium Hydroxide 30 ml 12/31/16 14:05 Milk Of Magnesia - PO DAILY PRN CONSTIPATION Miscellaneous 1 each 01/08/17 22:00 01/13/17 21:24 Lidoderm Patch Removal MC 1 each DAILY@2200 REINIER Administration Nabumetone 500 mg 12/31/16 22:00 01/14/17 10:02 Relafen - PO 500 mg BID REINIER Administration Nicotine 21 mg 12/31/16 14:15 01/14/17 10:35 Nicoderm Patch - TD Not Given DAILY REINIER Nicotine Polacrilex 2 mg 12/31/16 14:11 Nicorette Gum - BUC Q2H PRN NICOTINE REPLACEMENT RX Pantoprazole Sodium 40 mg 01/09/17 10:00 01/14/17 10:04 Protonix - PO 40 mg DAILY REINIER Administration Multivit/Folic Acid/Iron 1 tab 01/01/17 10:00 01/14/17 10:04 Vitamins (Sjr) - PO 1 tab DAILY REINIER Administration Pseudoephedrine/Triprolidine 1 combo 12/31/16 14:05 Actifed - PO TID PRN NASAL CONGESTION Quetiapine Fumarate 200 mg 01/14/17 22:00 Seroquel - PO HS REINIER Ropinirole HCl 1 mg 12/31/16 22:00 01/13/17 21:26 Requip - PO 1 mg HS REINIER Administration Sertraline HCl 150 mg 01/01/17 10:00 01/14/17 10:04 Zoloft - PO 150 mg DAILY REINIER Administration Sulfasalazine 1,000 mg 12/31/16 22:00 01/14/17 10:02 Azulfidine - PO 1,000 mg BID REINIER Administration Thiamine HCl 100 mg 12/31/16 22:00 01/13/17 21:23 Vitamin B1 - PO 100 mg HS REINIER Administration Current Side Effect: No Lab tests ordered: No Lab tests reviewed: Yes Provider note:: Chart was revuewed,Patient was evaluated.she addressed ongoing sleeping difficulties,some anxiety.Properties of Seroquel has been discussed with the patient including side effects,benefits and dose adjustment.Seroquel 150 mg po hs will be adjusted to 200 mg po hs.Patient will continue Zoloft 150 mg po daily,Buspar 15 mg po bid,Neurontin 300 mg po tid. Supportive therapy provided. Total face to face time:: 30 Mental Status Exam - Mental Status Exam Alert and Oriented to: Time, Place, Person Cognitive Function: Grossly Intact Patient Appearance: Well Groomed Mood: Euthymic Affect: Labile Patient Behavior: Cooperative Speech Pattern: Clear Voice Loudness: Normal Thought Process: Goal Oriented Thought Disorder: Not Present Hallucinations: Denies Suicidal Ideation: Denies Homicidal Ideation: Denies Insight/Judgement: Fair Sleep: Fair Appetite: Fair Muscle strength/Tone: Normal Gait/Station: Normal Psychiatric Treatment Plan - Problem List (1) Alcohol dependence, uncomplicated Current Visit: Yes (2) Cannabis dependence, uncomplicated Current Visit: Yes (3) Fibromyalgia Current Visit: Yes (4) GERD (gastroesophageal reflux disease) Current Visit: Yes Qualifiers: Esophagitis presence: esophagitis presence not specified Qualified Code(s) : K21.9 - Gastro-esophageal reflux disease without esophagitis (5) History of iron deficiency anemia Current Visit: Yes (6) Hypercholesterolemia Current Visit: Yes (7) Substance induced mood disorder Current Visit: Yes (8) Hypertension Current Visit: Yes Qualifiers: Hypertension type: essential hypertension Qualified Code(s): I10 - Essential (primary) hypertension
--- NOTE | 2017-01-14 11:07 | PN ---
[facility] Progress Note (SOAP) Subjective: c/o neuropathic pain from fibromyalgia, lyme and radial tenosynovitis for which she wears a brace, started on gabapentin needs to be titrated upa nd would like to d/c nambutone Objective: 01/14/17 11:05 Vital Signs - 24 hr 01/14/17 01/14/17 01/14/17 00:30 03:30 07:13 Temperature 97.9 F Pulse Rate 83 Respiratory 18 18 18 Rate Blood Pressure 126/79 01/14/17 09:19 Temperature Pulse Rate 89 Respiratory Rate Blood Pressure 119/81 Laboratory Tests 12/31/16 01/01/17 01/01/17 15:25 07:50 07:50 WBC 6.4 RBC 4.26 Hgb 12.0 Hct 37.6 MCV 88.1 MCH 28.2 MCHC 32.0 RDW 28.2 H Plt Count 273 MPV 8.2 Sodium 141 Potassium 3.8 Chloride 108 H Carbon Dioxide 28 Anion Gap 5 L BUN 12 Creatinine 0.8 Creat Clearance w eGFR > 60 Random Glucose 128 H Calcium 8.7 Total Bilirubin 0.6 AST 28 ALT 45 Alkaline Phosphatase 107 Total Protein 7.3 Albumin 3.9 Urine Color La[place]ne Urine Appearance Clear Urine pH 5.0 Ur Specific Emm[place] 1.012 Urine Protein Negative Urine Glucose (UA) Negative Urine Ketones Negative Urine Blood Negative Urine Nitrite Negative Urine Bilirubin Negative Urine Urobilinogen Negative Ur Leukocyte Esterase Negative RPR Titer 01/01/17 07:50 WBC RBC Hgb Hct MCV MCH MCHC RDW Plt Count MPV Sodium Potassium Chloride Carbon Dioxide Anion Gap BUN Creatinine Creat Clearance w eGFR Random Glucose Calcium Total Bilirubin AST ALT Alkaline Phosphatase Total Protein Albumin Urine Color Urine Appearance Urine pH Ur Specific Emmons Urine Protein Urine Glucose (UA) Urine Ketones Urine Blood Urine Nitrite Urine Bilirubin Urine Urobilinogen Ur Leukocyte Esterase RPR Titer Nonreactive Assessment: 01/14/17 11:05 fibromyalbia, lyme disease, tenosynovitis wearing brace - neruoapthic pa9in syndrome, d/c nambutone as ineffective increase neurontin, start elavil 25mg qHS aat night for cyr and sleep. start cymbalta for euroathic pain... adjust doses upwards as tolerated to max effective dose tolerated.
[2017-01-14] MEDS: DULoxetine HCL 20 MG CAPSULE.DR (FP) PO SCH (12:03)
[2017-01-14] MEDS: GABAPENTIN 400 MG CAPSULE (FP) PO SCH ×2 (13:04→21:24)
[2017-01-14] MEDS: THIAMINE HCL 100 MG TABLET (FP) PO SCH (21:24)
[2017-01-14] MEDS: DOCUSATE SODIUM 100 MG CAPSULE (FP) PO SCH (21:24)
[2017-01-14] MEDS: ATORVASTATIN CA 10 MG TABLET (FP) PO SCH (21:24)
[2017-01-14] MEDS: rOPINIRole HCL 1 MG TABLET (FP) PO SCH (21:25)
[2017-01-14] MEDS: QUEtiapine FUMARATE 200 MG TABLET PO SCH (21:27)
[2017-01-14] MEDS: AMITRIPTYLINE HCL 25 MG TABLET (FP) PO SCH (21:27)
[2017-01-14] MEDS: LIDOCAINE PATCH REMOVAL MC SCH (21:27)
[2017-01-14] MEDS: HYDROCORTISONE 2.5% TOPICAL CREAM 30 GM TUBE PR SCH (21:27)
[2017-01-15] MEDS: GABAPENTIN 400 MG CAPSULE (FP) PO SCH ×3 (06:33→21:27)
[2017-01-15] MEDS: sulfaSALAzine 500 MG TABLET PO SCH ×2 (09:59→21:28)
[2017-01-15] MEDS: SERTRALINE HCL 50 MG TABLET (FP) PO SCH (10:00)
[2017-01-15] MEDS: PANTOPRAZOLE 40 MG TABLET (FP) PO SCH (10:00)
[2017-01-15] MEDS: NICOTINE 21 MG/24 HOURS TOPICAL PATCH TD SCH (10:00)
[2017-01-15] MEDS: DULoxetine HCL 20 MG CAPSULE.DR (FP) PO SCH (10:00)
[2017-01-15] MEDS: ALLOPURINOL 300 MG TABLET (FP) PO SCH (10:00)
[2017-01-15] MEDS: amLODIPine BESYLATE 5 MG TABLET (FP) PO SCH (10:00)
[2017-01-15] MEDS: PRENATAL VITAMINS W/ FOLIC ACID TABLET (FP) PO SCH (10:00)
[2017-01-15] MEDS: LIDOCAINE 5% TOPICAL PATCH TP SCH (10:00)
[2017-01-15] MEDS: DOCUSATE SODIUM 100 MG CAPSULE (FP) PO SCH (21:26)
[2017-01-15] MEDS: THIAMINE HCL 100 MG TABLET (FP) PO SCH (21:26)
[2017-01-15] MEDS: QUEtiapine FUMARATE 200 MG TABLET PO SCH (21:27)
[2017-01-15] MEDS: AMITRIPTYLINE HCL 25 MG TABLET (FP) PO SCH (21:27)
[2017-01-15] MEDS: ATORVASTATIN CA 10 MG TABLET (FP) PO SCH (21:27)
[2017-01-15] MEDS: HYDROCORTISONE 2.5% TOPICAL CREAM 30 GM TUBE PR SCH (21:28)
[2017-01-15] MEDS: LIDOCAINE PATCH REMOVAL MC SCH (21:28)
[2017-01-15] MEDS: rOPINIRole HCL 1 MG TABLET (FP) PO SCH (21:28)
[2017-01-16] MEDS: GABAPENTIN 400 MG CAPSULE (FP) PO SCH ×3 (06:22→21:40)
[2017-01-16] MEDS: LIDOCAINE 5% TOPICAL PATCH TP SCH (10:00)
[2017-01-16] MEDS: NICOTINE 21 MG/24 HOURS TOPICAL PATCH TD SCH (10:00)
[2017-01-16] MEDS: sulfaSALAzine 500 MG TABLET PO SCH ×2 (10:01→21:41)
[2017-01-16] MEDS: PANTOPRAZOLE 40 MG TABLET (FP) PO SCH (10:02)
[2017-01-16] MEDS: ALLOPURINOL 300 MG TABLET (FP) PO SCH (10:02)
[2017-01-16] MEDS: PRENATAL VITAMINS W/ FOLIC ACID TABLET (FP) PO SCH (10:02)
[2017-01-16] MEDS: SERTRALINE HCL 50 MG TABLET (FP) PO SCH (10:02)
[2017-01-16] MEDS: amLODIPine BESYLATE 5 MG TABLET (FP) PO SCH (10:03)
[2017-01-16] MEDS: DULoxetine HCL 20 MG CAPSULE.DR (FP) PO SCH (10:03)
[2017-01-16] MEDS: MINERAL OIL/PETROLAT/WATER TOPICAL CREAM 113 GM JAR TP SCH (18:30)
[2017-01-16] MEDS: MAG HYDROX/AL HYDROX/SIMETH 30 ML UNIT-DOSE CUP PO PRN (18:57)
[2017-01-16] MEDS ORDERED: PT OWN MED DRAWER 7, Y5N ONE (19:29)
[2017-01-16] MEDS: HYDROCORTISONE 2.5% TOPICAL CREAM 30 GM TUBE PR SCH (21:40)
[2017-01-16] MEDS: DOCUSATE SODIUM 100 MG CAPSULE (FP) PO SCH (21:40)
[2017-01-16] MEDS: rOPINIRole HCL 1 MG TABLET (FP) PO SCH (21:41)
[2017-01-16] MEDS: ATORVASTATIN CA 10 MG TABLET (FP) PO SCH (21:41)
[2017-01-16] MEDS: QUEtiapine FUMARATE 200 MG TABLET PO SCH (21:41)
[2017-01-16] MEDS: AMITRIPTYLINE HCL 25 MG TABLET (FP) PO SCH (21:41)
[2017-01-16] MEDS: LIDOCAINE PATCH REMOVAL MC SCH (22:15)
[2017-01-16] MEDS: THIAMINE HCL 100 MG TABLET (FP) PO SCH (22:17)
[2017-01-17] MEDS: GABAPENTIN 400 MG CAPSULE (FP) PO SCH ×3 (06:50→21:31)
[2017-01-17] MEDS ORDERED: PT OWN MED DRAWER 7, Y5N ONE (08:45)
[2017-01-17] MEDS: amLODIPine BESYLATE 5 MG TABLET (FP) PO SCH (09:53)
[2017-01-17] MEDS: NICOTINE 21 MG/24 HOURS TOPICAL PATCH TD SCH (09:53)
[2017-01-17] MEDS: DULoxetine HCL 20 MG CAPSULE.DR (FP) PO SCH (09:53)
[2017-01-17] MEDS: sulfaSALAzine 500 MG TABLET PO SCH ×2 (09:53→21:33)
[2017-01-17] MEDS: PANTOPRAZOLE 40 MG TABLET (FP) PO SCH (09:54)
[2017-01-17] MEDS: SERTRALINE HCL 50 MG TABLET (FP) PO SCH (09:54)
[2017-01-17] MEDS: PRENATAL VITAMINS W/ FOLIC ACID TABLET (FP) PO SCH (09:54)
[2017-01-17] MEDS: NICOTINE POLACRILEX 2 MG GUM BUC PRN (09:54)
[2017-01-17] MEDS: ALLOPURINOL 300 MG TABLET (FP) PO SCH (09:54)
[2017-01-17] MEDS: LIDOCAINE 5% TOPICAL PATCH TP SCH (09:55)
[2017-01-17] MEDS: MINERAL OIL/PETROLAT/WATER TOPICAL CREAM 113 GM JAR TP SCH (09:56)
[2017-01-17] MEDS: DOCUSATE SODIUM 100 MG CAPSULE (FP) PO SCH (21:31)
[2017-01-17] MEDS: QUEtiapine FUMARATE 200 MG TABLET PO SCH (21:31)
[2017-01-17] MEDS: ATORVASTATIN CA 10 MG TABLET (FP) PO SCH (21:31)
[2017-01-17] MEDS: THIAMINE HCL 100 MG TABLET (FP) PO SCH (21:31)
[2017-01-17] MEDS: AMITRIPTYLINE HCL 25 MG TABLET (FP) PO SCH (21:31)
[2017-01-17] MEDS: LIDOCAINE PATCH REMOVAL MC SCH (21:33)
[2017-01-17] MEDS: HYDROCORTISONE 2.5% TOPICAL CREAM 30 GM TUBE PR SCH (21:33)
[2017-01-17] MEDS: rOPINIRole HCL 1 MG TABLET (FP) PO SCH (21:33)
[2017-01-18] MEDS: GABAPENTIN 400 MG CAPSULE (FP) PO SCH ×3 (06:51→21:27)
[2017-01-18] MEDS ORDERED: PT OWN MED DRAWER 7, Y5N ONE ×2 (08:55→23:58)
[2017-01-18] MEDS: ALLOPURINOL 300 MG TABLET (FP) PO SCH (09:18)
[2017-01-18] MEDS: LIDOCAINE 5% TOPICAL PATCH TP SCH (09:18)
[2017-01-18] MEDS: NICOTINE 21 MG/24 HOURS TOPICAL PATCH TD SCH (09:18)
[2017-01-18] MEDS: sulfaSALAzine 500 MG TABLET PO SCH ×2 (09:18→23:36)
[2017-01-18] MEDS: PANTOPRAZOLE 40 MG TABLET (FP) PO SCH (09:19)
[2017-01-18] MEDS: PRENATAL VITAMINS W/ FOLIC ACID TABLET (FP) PO SCH (09:19)
[2017-01-18] MEDS: amLODIPine BESYLATE 5 MG TABLET (FP) PO SCH (09:19)
[2017-01-18] MEDS: DULoxetine HCL 20 MG CAPSULE.DR (FP) PO SCH (09:19)
[2017-01-18] MEDS: SERTRALINE HCL 50 MG TABLET (FP) PO SCH (09:19)
[2017-01-18] MEDS: MINERAL OIL/PETROLAT/WATER TOPICAL CREAM 113 GM JAR TP SCH (09:19)
[2017-01-18] MEDS: ACETAMINOPHEN 325 MG TABLET (FP) PO PRN ×2 (09:20→13:49)
[2017-01-18] MEDS: DOCUSATE SODIUM 100 MG CAPSULE (FP) PO SCH (21:26)
[2017-01-18] MEDS: THIAMINE HCL 100 MG TABLET (FP) PO SCH (21:26)
[2017-01-18] MEDS: QUEtiapine FUMARATE 200 MG TABLET PO SCH (21:27)
[2017-01-18] MEDS: AMITRIPTYLINE HCL 25 MG TABLET (FP) PO SCH (21:27)
[2017-01-18] MEDS: ATORVASTATIN CA 10 MG TABLET (FP) PO SCH (21:27)
[2017-01-18] MEDS: rOPINIRole HCL 1 MG TABLET (FP) PO SCH (21:28)
[2017-01-18] MEDS: HYDROCORTISONE 2.5% TOPICAL CREAM 30 GM TUBE PR SCH (21:29)
[2017-01-18] MEDS: NICOTINE POLACRILEX 2 MG GUM BUC PRN (21:29)
[2017-01-18] MEDS: LIDOCAINE PATCH REMOVAL MC SCH (21:29)
[2017-01-19] MEDS: GABAPENTIN 400 MG CAPSULE (FP) PO SCH ×3 (06:36→21:29)
[2017-01-19] MEDS: ACETAMINOPHEN 325 MG TABLET (FP) PO PRN (06:36)
[2017-01-19] MEDS ORDERED: PT OWN MED DRAWER 7, Y5N ONE (08:35)
[2017-01-19] MEDS: MINERAL OIL/PETROLAT/WATER TOPICAL CREAM 113 GM JAR TP SCH (09:57)
[2017-01-19] MEDS: NICOTINE 21 MG/24 HOURS TOPICAL PATCH TD SCH (09:57)
[2017-01-19] MEDS: LIDOCAINE 5% TOPICAL PATCH TP SCH (09:58)
[2017-01-19] MEDS: sulfaSALAzine 500 MG TABLET PO SCH ×2 (09:58→21:31)
[2017-01-19] MEDS: PANTOPRAZOLE 40 MG TABLET (FP) PO SCH (09:58)
[2017-01-19] MEDS: amLODIPine BESYLATE 5 MG TABLET (FP) PO SCH (09:58)
[2017-01-19] MEDS: DULoxetine HCL 20 MG CAPSULE.DR (FP) PO SCH (09:58)
[2017-01-19] MEDS: SERTRALINE HCL 50 MG TABLET (FP) PO SCH (09:58)
[2017-01-19] MEDS: ALLOPURINOL 300 MG TABLET (FP) PO SCH (09:58)
[2017-01-19] MEDS: ERGOCALCIFEROL (VITAMIN D2) 50,000 UNIT CAPSULE (FP) PO SCH (09:58)
[2017-01-19] MEDS: NICOTINE POLACRILEX 2 MG GUM BUC PRN ×2 (09:59→13:08)
[2017-01-19] MEDS: PRENATAL VITAMINS W/ FOLIC ACID TABLET (FP) PO SCH (09:59)
[2017-01-19] MEDS: THIAMINE HCL 100 MG TABLET (FP) PO SCH (21:29)
[2017-01-19] MEDS: AMITRIPTYLINE HCL 25 MG TABLET (FP) PO SCH (21:29)
[2017-01-19] MEDS: DOCUSATE SODIUM 100 MG CAPSULE (FP) PO SCH (21:29)
[2017-01-19] MEDS: ATORVASTATIN CA 10 MG TABLET (FP) PO SCH (21:29)
[2017-01-19] MEDS: QUEtiapine FUMARATE 200 MG TABLET PO SCH (21:29)
[2017-01-19] MEDS: HYDROCORTISONE 2.5% TOPICAL CREAM 30 GM TUBE PR SCH (21:30)
[2017-01-19] MEDS: rOPINIRole HCL 1 MG TABLET (FP) PO SCH (21:31)
[2017-01-19] MEDS: LIDOCAINE PATCH REMOVAL MC SCH (21:31)
[2017-01-20] MEDS: GABAPENTIN 400 MG CAPSULE (FP) PO SCH ×3 (06:29→21:27)
[2017-01-20] MEDS ORDERED: PT OWN MED DRAWER 7, Y5N ONE ×3 (08:33→13:35)
[2017-01-20] MEDS: sulfaSALAzine 500 MG TABLET PO SCH ×2 (10:02→21:29)
[2017-01-20] MEDS: DULoxetine HCL 20 MG CAPSULE.DR (FP) PO SCH (10:03)
[2017-01-20] MEDS: PANTOPRAZOLE 40 MG TABLET (FP) PO SCH (10:04)
[2017-01-20] MEDS: ALLOPURINOL 300 MG TABLET (FP) PO SCH (10:04)
[2017-01-20] MEDS: PRENATAL VITAMINS W/ FOLIC ACID TABLET (FP) PO SCH (10:04)
[2017-01-20] MEDS: NICOTINE 21 MG/24 HOURS TOPICAL PATCH TD SCH (10:05)
[2017-01-20] MEDS: MINERAL OIL/PETROLAT/WATER TOPICAL CREAM 113 GM JAR TP SCH (10:05)
[2017-01-20] MEDS: SERTRALINE HCL 50 MG TABLET (FP) PO SCH (10:05)
[2017-01-20] MEDS: LIDOCAINE 5% TOPICAL PATCH TP SCH (10:05)
[2017-01-20] MEDS: NICOTINE POLACRILEX 2 MG GUM BUC PRN ×2 (10:06→13:20)
[2017-01-20] MEDS: amLODIPine BESYLATE 5 MG TABLET (FP) PO SCH (10:07)
[2017-01-20] MEDS: ACETAMINOPHEN 325 MG TABLET (FP) PO PRN (13:19)
[2017-01-20] MEDS ORDERED: COLLOIDAL OATMEAL 1 BAR EACH TP PRN (15:23)
[2017-01-20] MEDS: THIAMINE HCL 100 MG TABLET (FP) PO SCH (21:27)
[2017-01-20] MEDS: DOCUSATE SODIUM 100 MG CAPSULE (FP) PO SCH (21:27)
[2017-01-20] MEDS: AMITRIPTYLINE HCL 25 MG TABLET (FP) PO SCH (21:27)
[2017-01-20] MEDS: QUEtiapine FUMARATE 200 MG TABLET PO SCH (21:28)
[2017-01-20] MEDS: ATORVASTATIN CA 10 MG TABLET (FP) PO SCH (21:28)
[2017-01-20] MEDS: rOPINIRole HCL 1 MG TABLET (FP) PO SCH (21:29)
[2017-01-20] MEDS: LIDOCAINE PATCH REMOVAL MC SCH (21:29)
[2017-01-20] MEDS: HYDROCORTISONE 2.5% TOPICAL CREAM 30 GM TUBE PR SCH (21:29)
[2017-01-21] MEDS: GABAPENTIN 400 MG CAPSULE (FP) PO SCH ×3 (06:30→21:29)
[2017-01-21] MEDS ORDERED: PT OWN MED DRAWER 7, Y5N ONE (08:39)
[2017-01-21] MEDS: NICOTINE POLACRILEX 2 MG GUM BUC PRN (09:01)
[2017-01-21] MEDS: PANTOPRAZOLE 40 MG TABLET (FP) PO SCH (10:14)
[2017-01-21] MEDS: amLODIPine BESYLATE 5 MG TABLET (FP) PO SCH (10:14)
[2017-01-21] MEDS: sulfaSALAzine 500 MG TABLET PO SCH ×2 (10:14→21:31)
[2017-01-21] MEDS: ALLOPURINOL 300 MG TABLET (FP) PO SCH (10:14)
[2017-01-21] MEDS: DULoxetine HCL 20 MG CAPSULE.DR (FP) PO SCH (10:14)
[2017-01-21] MEDS: PRENATAL VITAMINS W/ FOLIC ACID TABLET (FP) PO SCH (10:14)
[2017-01-21] MEDS: SERTRALINE HCL 50 MG TABLET (FP) PO SCH (10:15)
[2017-01-21] MEDS: NICOTINE 21 MG/24 HOURS TOPICAL PATCH TD SCH (10:15)
[2017-01-21] MEDS: LIDOCAINE 5% TOPICAL PATCH TP SCH (10:15)
[2017-01-21] MEDS: MINERAL OIL/PETROLAT/WATER TOPICAL CREAM 113 GM JAR TP SCH (10:16)
[2017-01-21] MEDS: ACETAMINOPHEN 325 MG TABLET (FP) PO PRN (17:00)
[2017-01-21] MEDS: ATORVASTATIN CA 10 MG TABLET (FP) PO SCH (21:28)
[2017-01-21] MEDS: QUEtiapine FUMARATE 200 MG TABLET PO SCH (21:28)
[2017-01-21] MEDS: THIAMINE HCL 100 MG TABLET (FP) PO SCH (21:28)
[2017-01-21] MEDS: AMITRIPTYLINE HCL 25 MG TABLET (FP) PO SCH (21:28)
[2017-01-21] MEDS: DOCUSATE SODIUM 100 MG CAPSULE (FP) PO SCH (21:29)
[2017-01-21] MEDS: HYDROCORTISONE 2.5% TOPICAL CREAM 30 GM TUBE PR SCH (21:31)
[2017-01-21] MEDS: rOPINIRole HCL 1 MG TABLET (FP) PO SCH (21:31)
[2017-01-21] MEDS: LIDOCAINE PATCH REMOVAL MC SCH (21:31)
[2017-01-22] MEDS: GABAPENTIN 400 MG CAPSULE (FP) PO SCH ×2 (06:45→13:01)
[2017-01-22] MEDS ORDERED: PT OWN MED DRAWER 7, Y5N ONE ×2 (08:59→10:16)
[2017-01-22] MEDS: LIDOCAINE 5% TOPICAL PATCH TP SCH (09:54)
[2017-01-22] MEDS: SERTRALINE HCL 50 MG TABLET (FP) PO SCH (09:55)
[2017-01-22] MEDS: NICOTINE 21 MG/24 HOURS TOPICAL PATCH TD SCH (09:55)
[2017-01-22] MEDS: amLODIPine BESYLATE 5 MG TABLET (FP) PO SCH (09:56)
[2017-01-22] MEDS: PRENATAL VITAMINS W/ FOLIC ACID TABLET (FP) PO SCH (09:56)
[2017-01-22] MEDS: sulfaSALAzine 500 MG TABLET PO SCH ×2 (09:57→21:29)
[2017-01-22] MEDS: MINERAL OIL/PETROLAT/WATER TOPICAL CREAM 113 GM JAR TP SCH (09:57)
[2017-01-22] MEDS: DULoxetine HCL 20 MG CAPSULE.DR (FP) PO SCH (09:57)
[2017-01-22] MEDS: ALLOPURINOL 300 MG TABLET (FP) PO SCH (09:57)
[2017-01-22] MEDS: PANTOPRAZOLE 40 MG TABLET (FP) PO SCH (09:58)
[2017-01-22] MEDS: NICOTINE POLACRILEX 2 MG GUM BUC PRN (09:59)
[2017-01-22] MEDS ORDERED: GABAPENTIN 400 MG CAPSULE (FP) PO SCH (13:44)
--- NOTE | 2017-01-22 13:47 | PN ---
[facility] Progress Note Note: increase neurontin to 500mg tid also co mole on left breast longstanding 3 cm x 1 cm macular layered lesion ap chronic pain increase to 500mg tid lesion: cw ? dysplastic nevi recommend derm referral upon dc risks of non bx lesion reviewed
[2017-01-22] MEDS: GABAPENTIN 400 MG, GABAPENTIN 100 MG PO SCH ×2 (14:48→21:27)
[2017-01-22] MEDS ORDERED: GABAPENTIN 400 MG CAPSULE (FP) ONE (19:51)
[2017-01-22] MEDS ORDERED: GABAPENTIN 100 MG CAPSULE (FP) ONE (19:52)
[2017-01-22] MEDS: QUEtiapine FUMARATE 200 MG TABLET PO SCH (21:27)
[2017-01-22] MEDS: DOCUSATE SODIUM 100 MG CAPSULE (FP) PO SCH (21:27)
[2017-01-22] MEDS: THIAMINE HCL 100 MG TABLET (FP) PO SCH (21:27)
[2017-01-22] MEDS: AMITRIPTYLINE HCL 25 MG TABLET (FP) PO SCH (21:27)
[2017-01-22] MEDS: ATORVASTATIN CA 10 MG TABLET (FP) PO SCH (21:27)
[2017-01-22] MEDS: rOPINIRole HCL 1 MG TABLET (FP) PO SCH (21:29)
[2017-01-22] MEDS: HYDROCORTISONE 2.5% TOPICAL CREAM 30 GM TUBE PR SCH (21:29)
[2017-01-22] MEDS: LIDOCAINE PATCH REMOVAL MC SCH (21:29)
[2017-01-23] MEDS ORDERED: GABAPENTIN 400 MG CAPSULE (FP) ONE ×3 (05:55→19:36)
[2017-01-23] MEDS ORDERED: GABAPENTIN 100 MG CAPSULE (FP) ONE ×3 (05:55→19:36)
[2017-01-23] MEDS: GABAPENTIN 400 MG, GABAPENTIN 100 MG PO SCH ×2 (06:31→21:38)
[2017-01-23] MEDS: NICOTINE 21 MG/24 HOURS TOPICAL PATCH TD SCH (10:12)
[2017-01-23] MEDS: LIDOCAINE 5% TOPICAL PATCH TP SCH (10:12)
[2017-01-23] MEDS: sulfaSALAzine 500 MG TABLET PO SCH ×2 (10:12→21:38)
[2017-01-23] MEDS: ALLOPURINOL 300 MG TABLET (FP) PO SCH (10:13)
[2017-01-23] MEDS: SERTRALINE HCL 50 MG TABLET (FP) PO SCH (10:13)
[2017-01-23] MEDS: DULoxetine HCL 20 MG CAPSULE.DR (FP) PO SCH (10:13)
[2017-01-23] MEDS: amLODIPine BESYLATE 5 MG TABLET (FP) PO SCH (10:13)
[2017-01-23] MEDS: PRENATAL VITAMINS W/ FOLIC ACID TABLET (FP) PO SCH (10:13)
[2017-01-23] MEDS: PANTOPRAZOLE 40 MG TABLET (FP) PO SCH (10:14)
[2017-01-23] MEDS: MINERAL OIL/PETROLAT/WATER TOPICAL CREAM 113 GM JAR TP SCH (10:14)
[2017-01-23] MEDS: NICOTINE POLACRILEX 2 MG GUM BUC PRN ×2 (10:15→21:52)
[2017-01-23] MEDS: ACETAMINOPHEN 325 MG TABLET (FP) PO PRN (10:16)
[2017-01-23] MEDS: THIAMINE HCL 100 MG TABLET (FP) PO SCH (21:37)
[2017-01-23] MEDS: ATORVASTATIN CA 10 MG TABLET (FP) PO SCH (21:37)
[2017-01-23] MEDS: HYDROCORTISONE 2.5% TOPICAL CREAM 30 GM TUBE PR SCH (21:37)
[2017-01-23] MEDS: DOCUSATE SODIUM 100 MG CAPSULE (FP) PO SCH (21:37)
[2017-01-23] MEDS: AMITRIPTYLINE HCL 25 MG TABLET (FP) PO SCH (21:37)
[2017-01-23] MEDS: LIDOCAINE PATCH REMOVAL MC SCH (21:38)
[2017-01-23] MEDS: QUEtiapine FUMARATE 200 MG TABLET PO SCH (21:38)
[2017-01-23] MEDS: rOPINIRole HCL 1 MG TABLET (FP) PO SCH (21:38)
[2017-01-24] MEDS ORDERED: GABAPENTIN 400 MG CAPSULE (FP) ONE ×3 (06:54→19:31)
[2017-01-24] MEDS ORDERED: GABAPENTIN 100 MG CAPSULE (FP) ONE ×3 (06:54→19:32)
[2017-01-24] MEDS: GABAPENTIN 400 MG, GABAPENTIN 100 MG PO SCH ×4 (06:54→21:25)
[2017-01-24] MEDS: ACETAMINOPHEN 325 MG TABLET (FP) PO PRN (08:36)
[2017-01-24] MEDS: LIDOCAINE 5% TOPICAL PATCH TP SCH (09:15)
[2017-01-24] MEDS: SERTRALINE HCL 50 MG TABLET (FP) PO SCH (09:16)
[2017-01-24] MEDS: DULoxetine HCL 20 MG CAPSULE.DR (FP) PO SCH (09:16)
[2017-01-24] MEDS: amLODIPine BESYLATE 5 MG TABLET (FP) PO SCH (09:17)
[2017-01-24] MEDS: PANTOPRAZOLE 40 MG TABLET (FP) PO SCH (09:17)
[2017-01-24] MEDS: ALLOPURINOL 300 MG TABLET (FP) PO SCH (09:17)
[2017-01-24] MEDS: PRENATAL VITAMINS W/ FOLIC ACID TABLET (FP) PO SCH (09:17)
[2017-01-24] MEDS: NICOTINE 21 MG/24 HOURS TOPICAL PATCH TD SCH (09:18)
[2017-01-24] MEDS ORDERED: PT OWN MED DRAWER 7, Y5N ONE ×3 (09:18→13:24)
[2017-01-24] MEDS: sulfaSALAzine 500 MG TABLET PO SCH ×2 (09:18→21:57)
[2017-01-24] MEDS: MINERAL OIL/PETROLAT/WATER TOPICAL CREAM 113 GM JAR TP SCH (10:57)
[2017-01-24] MEDS: NICOTINE POLACRILEX 2 MG GUM BUC PRN ×2 (13:05→19:56)
[2017-01-24] MEDS: ATORVASTATIN CA 10 MG TABLET (FP) PO SCH (21:25)
[2017-01-24] MEDS: THIAMINE HCL 100 MG TABLET (FP) PO SCH (21:25)
[2017-01-24] MEDS: DOCUSATE SODIUM 100 MG CAPSULE (FP) PO SCH (21:25)
[2017-01-24] MEDS: AMITRIPTYLINE HCL 25 MG TABLET (FP) PO SCH (21:26)
[2017-01-24] MEDS: rOPINIRole HCL 1 MG TABLET (FP) PO SCH (21:27)
[2017-01-24] MEDS: HYDROCORTISONE 2.5% TOPICAL CREAM 30 GM TUBE PR SCH (21:28)
[2017-01-24] MEDS: LIDOCAINE PATCH REMOVAL MC SCH (22:03)
[2017-01-24] MEDS: QUEtiapine FUMARATE 200 MG TABLET PO SCH (22:03)
[2017-01-25] MEDS ORDERED: GABAPENTIN 100 MG CAPSULE (FP) ONE ×3 (03:28→19:44)
[2017-01-25] MEDS ORDERED: GABAPENTIN 400 MG CAPSULE (FP) ONE ×3 (03:28→19:44)
[2017-01-25] MEDS: GABAPENTIN 400 MG, GABAPENTIN 100 MG PO SCH ×3 (06:37→21:24)
[2017-01-25] MEDS ORDERED: PT OWN MED DRAWER 7, Y5N ONE ×3 (08:14→13:27)
[2017-01-25] MEDS: NICOTINE POLACRILEX 2 MG GUM BUC PRN ×2 (08:42→13:19)
[2017-01-25] MEDS: LIDOCAINE 5% TOPICAL PATCH TP SCH (09:30)
[2017-01-25] MEDS: sulfaSALAzine 500 MG TABLET PO SCH ×2 (09:30→21:25)
[2017-01-25] MEDS: DULoxetine HCL 20 MG CAPSULE.DR (FP) PO SCH (09:31)
[2017-01-25] MEDS: PRENATAL VITAMINS W/ FOLIC ACID TABLET (FP) PO SCH (09:31)
[2017-01-25] MEDS: NICOTINE 21 MG/24 HOURS TOPICAL PATCH TD SCH (09:31)
[2017-01-25] MEDS: PANTOPRAZOLE 40 MG TABLET (FP) PO SCH (09:31)
[2017-01-25] MEDS: MINERAL OIL/PETROLAT/WATER TOPICAL CREAM 113 GM JAR TP SCH (09:32)
[2017-01-25] MEDS: SERTRALINE HCL 50 MG TABLET (FP) PO SCH (09:32)
[2017-01-25] MEDS: ALLOPURINOL 300 MG TABLET (FP) PO SCH (09:32)
[2017-01-25] MEDS: amLODIPine BESYLATE 5 MG TABLET (FP) PO SCH (09:32)
[2017-01-25] MEDS: ACETAMINOPHEN 325 MG TABLET (FP) PO PRN (18:23)
[2017-01-25] MEDS: THIAMINE HCL 100 MG TABLET (FP) PO SCH (21:24)
[2017-01-25] MEDS: ATORVASTATIN CA 10 MG TABLET (FP) PO SCH (21:24)
[2017-01-25] MEDS: AMITRIPTYLINE HCL 25 MG TABLET (FP) PO SCH (21:24)
[2017-01-25] MEDS: DOCUSATE SODIUM 100 MG CAPSULE (FP) PO SCH (21:24)
[2017-01-25] MEDS: LIDOCAINE PATCH REMOVAL MC SCH (21:25)
[2017-01-25] MEDS: rOPINIRole HCL 1 MG TABLET (FP) PO SCH (21:25)
[2017-01-25] MEDS: HYDROCORTISONE 2.5% TOPICAL CREAM 30 GM TUBE PR SCH (21:25)
[2017-01-25] MEDS: QUEtiapine FUMARATE 200 MG TABLET PO SCH (21:27)
[2017-01-26] MEDS ORDERED: GABAPENTIN 400 MG CAPSULE (FP) ONE ×3 (03:10→19:34)
[2017-01-26] MEDS ORDERED: GABAPENTIN 100 MG CAPSULE (FP) ONE ×3 (03:10→19:34)
[2017-01-26] MEDS: GABAPENTIN 400 MG, GABAPENTIN 100 MG PO SCH ×3 (06:30→21:18)
[2017-01-26] MEDS ORDERED: PT OWN MED DRAWER 7, Y5N ONE (08:28)
[2017-01-26] MEDS: SERTRALINE HCL 50 MG TABLET (FP) PO SCH (09:52)
[2017-01-26] MEDS: LIDOCAINE 5% TOPICAL PATCH TP SCH (09:52)
[2017-01-26] MEDS: NICOTINE 21 MG/24 HOURS TOPICAL PATCH TD SCH (09:52)
[2017-01-26] MEDS: ERGOCALCIFEROL (VITAMIN D2) 50,000 UNIT CAPSULE (FP) PO SCH (09:52)
[2017-01-26] MEDS: sulfaSALAzine 500 MG TABLET PO SCH ×2 (09:52→21:19)
[2017-01-26] MEDS: PRENATAL VITAMINS W/ FOLIC ACID TABLET (FP) PO SCH (09:53)
[2017-01-26] MEDS: DULoxetine HCL 20 MG CAPSULE.DR (FP) PO SCH (09:53)
[2017-01-26] MEDS: ALLOPURINOL 300 MG TABLET (FP) PO SCH (09:53)
[2017-01-26] MEDS: amLODIPine BESYLATE 5 MG TABLET (FP) PO SCH (09:53)
[2017-01-26] MEDS: PANTOPRAZOLE 40 MG TABLET (FP) PO SCH (09:53)
[2017-01-26] MEDS: MINERAL OIL/PETROLAT/WATER TOPICAL CREAM 113 GM JAR TP SCH (09:54)
[2017-01-26] MEDS: NICOTINE POLACRILEX 4 MG GUM BUC PRN (14:00)
[2017-01-26] MEDS: ATORVASTATIN CA 10 MG TABLET (FP) PO SCH (21:18)
[2017-01-26] MEDS: AMITRIPTYLINE HCL 25 MG TABLET (FP) PO SCH (21:18)
[2017-01-26] MEDS: THIAMINE HCL 100 MG TABLET (FP) PO SCH (21:18)
[2017-01-26] MEDS: DOCUSATE SODIUM 100 MG CAPSULE (FP) PO SCH (21:18)
[2017-01-26] MEDS: HYDROCORTISONE 2.5% TOPICAL CREAM 30 GM TUBE PR SCH (21:19)
[2017-01-26] MEDS: LIDOCAINE PATCH REMOVAL MC SCH (21:20)
[2017-01-26] MEDS: rOPINIRole HCL 1 MG TABLET (FP) PO SCH (21:20)
[2017-01-26] MEDS: QUEtiapine FUMARATE 50 MG TABLET PO SCH (21:21)
[2017-01-27] MEDS ORDERED: GABAPENTIN 400 MG CAPSULE (FP) ONE ×3 (05:46→19:33)
[2017-01-27] MEDS ORDERED: GABAPENTIN 100 MG CAPSULE (FP) ONE ×3 (05:47→19:33)
[2017-01-27] MEDS: GABAPENTIN 400 MG, GABAPENTIN 100 MG PO SCH ×3 (06:37→21:31)
[2017-01-27] MEDS ORDERED: PT OWN MED DRAWER 7, Y5N ONE ×2 (08:23→14:44)
[2017-01-27] MEDS: ACETAMINOPHEN 325 MG TABLET (FP) PO PRN (08:58)
[2017-01-27] MEDS: SERTRALINE HCL 50 MG TABLET (FP) PO SCH (09:00)
[2017-01-27] MEDS: PRENATAL VITAMINS W/ FOLIC ACID TABLET (FP) PO SCH (09:00)
[2017-01-27] MEDS: NICOTINE POLACRILEX 4 MG GUM BUC PRN ×3 (09:00→21:34)
[2017-01-27] MEDS: ALLOPURINOL 300 MG TABLET (FP) PO SCH (09:00)
[2017-01-27] MEDS: PANTOPRAZOLE 40 MG TABLET (FP) PO SCH (09:01)
[2017-01-27] MEDS: DULoxetine HCL 20 MG CAPSULE.DR (FP) PO SCH (09:01)
[2017-01-27] MEDS: amLODIPine BESYLATE 5 MG TABLET (FP) PO SCH (09:01)
[2017-01-27] MEDS: LIDOCAINE 5% TOPICAL PATCH TP SCH (09:01)
[2017-01-27] MEDS: sulfaSALAzine 500 MG TABLET PO SCH ×2 (09:02→21:34)
[2017-01-27] MEDS: NICOTINE 21 MG/24 HOURS TOPICAL PATCH TD SCH (09:02)
[2017-01-27] MEDS: MINERAL OIL/PETROLAT/WATER TOPICAL CREAM 113 GM JAR TP SCH (09:02)
[2017-01-27] MEDS: THIAMINE HCL 100 MG TABLET (FP) PO SCH (21:31)
[2017-01-27] MEDS: AMITRIPTYLINE HCL 25 MG TABLET (FP) PO SCH (21:31)
[2017-01-27] MEDS: QUEtiapine FUMARATE 50 MG TABLET PO SCH (21:32)
[2017-01-27] MEDS: DOCUSATE SODIUM 100 MG CAPSULE (FP) PO SCH (21:32)
[2017-01-27] MEDS: ATORVASTATIN CA 10 MG TABLET (FP) PO SCH (21:32)
[2017-01-27] MEDS: rOPINIRole HCL 1 MG TABLET (FP) PO SCH (21:34)
[2017-01-27] MEDS: HYDROCORTISONE 2.5% TOPICAL CREAM 30 GM TUBE PR SCH (21:34)
[2017-01-27] MEDS: LIDOCAINE PATCH REMOVAL MC SCH (21:45)
[2017-01-28] MEDS ORDERED: GABAPENTIN 100 MG CAPSULE (FP) ONE (05:29)
[2017-01-28] MEDS ORDERED: GABAPENTIN 400 MG CAPSULE (FP) ONE (05:29)
[2017-01-28] MEDS: GABAPENTIN 400 MG, GABAPENTIN 100 MG PO SCH (06:13)
[2017-01-28 06:54] VITALS: TEMP 97.3
[2017-01-28] MEDS: ALLOPURINOL 300 MG TABLET (FP) PO SCH (09:01)
[2017-01-28] MEDS: PRENATAL VITAMINS W/ FOLIC ACID TABLET (FP) PO SCH (09:01)
[2017-01-28] MEDS: amLODIPine BESYLATE 5 MG TABLET (FP) PO SCH (09:01)
[2017-01-28] MEDS: PANTOPRAZOLE 40 MG TABLET (FP) PO SCH (09:01)
[2017-01-28] MEDS: DULoxetine HCL 20 MG CAPSULE.DR (FP) PO SCH (09:01)
[2017-01-28] MEDS: sulfaSALAzine 500 MG TABLET PO SCH (09:01)
[2017-01-28] MEDS: SERTRALINE HCL 50 MG TABLET (FP) PO SCH (09:02)
[2017-01-28] MEDS: LIDOCAINE 5% TOPICAL PATCH TP SCH (09:02)
[2017-01-28] MEDS: NICOTINE 21 MG/24 HOURS TOPICAL PATCH TD SCH (09:02)
[2017-01-28] MEDS: MINERAL OIL/PETROLAT/WATER TOPICAL CREAM 113 GM JAR TP SCH (09:03)
[2017-01-28 09:21] VITALS: BP 117/82; PULSE 106
--- NOTE | 2017-01-28 09:26 | PN ---
Psychiatric Progress Note Vital Signs: Vital Signs Period Temp Pulse Resp BP Sys/Monreal Pulse Ox Last 24 Hr 97.3 F 88-105 16-18 117-119/78-83 Date of Session: 01/28/17 Chief Complaint:: Discharge visit HPI: Patient addressed Alcohol and Cannabis dependence comorbid with Substance induced mood disorder. ROS: Significant for Fibromialgia,GERD,Hyperlipidemia. Current Medications: Active Medications Generic Name Dose Route Start Last Admin Trade Name Freq PRN Reason Stop Dose Admin Acetaminophen 650 mg 12/31/16 14:05 01/27/17 08:58 Tylenol - PO 650 mg Q4H PRN Administration PAIN Al Hydroxide/Mg Hydroxide 30 ml 12/31/16 14:05 01/16/17 18:57 Mylanta Oral Suspension - PO 30 ml Q6H PRN Administration DYSPEPSIA Allopurinol 300 mg 01/01/17 10:00 01/28/17 09:01 Zyloprim - PO 300 mg DAILY REINIER Administration Amitriptyline HCl 25 mg 01/14/17 22:00 01/27/17 21:31 Elavil - PO 25 mg HS REINIER Administration Amlodipine Besylate 5 mg 01/01/17 10:00 01/28/17 09:01 Norvasc - PO 5 mg DAILY REINIER Administration Atorvastatin Calcium 10 mg 12/31/16 22:00 01/27/17 21:32 Lipitor - PO 10 mg HS REINIER Administration Buspirone HCl 15 mg 12/31/16 15:30 01/28/17 09:01 Buspar - PO 15 mg BID REINIER Administration Colloidal Oatmeal 1 applic 01/20/17 15:23 01/20/17 16:01 Aveeno Soap - TP 1 bar DAILY PRN Administration HYGEINE Docusate Sodium 300 mg 01/08/17 22:00 01/27/17 21:32 Colace - PO 300 mg HS REINIER Administration Duloxetine HCl 20 mg 01/14/17 11:15 01/28/17 09:01 Cymbalta - PO 20 mg DAILY REINIER Administration Ergocalciferol 50,000 unit 01/05/17 10:00 01/26/17 09:52 Drisdol - PO 50,000 unit Mo@1000 REINIER Administration Eucalyptus/Menthol/Phenol/Sorbitol 1 each 12/31/16 14:05 Cepastat Lozenge - MM Q4H PRN SORE THROAT Gabapentin 400 mg/ Gabapentin 500 mg 01/22/17 14:30 01/28/17 06:13 100 mg PO 500 mg TID REINIER Administration Guaifenesin 10 ml 12/31/16 14:05 Robitussin Dm - PO Q6H PRN COUGH Hydrocortisone 1 applic 01/08/17 14:15 01/27/17 21:34 Anusol 2.5% Hc Cream - CO Not Given HS REINIER Hydroxyzine Pamoate 25 mg 12/31/16 14:05 Vistaril - PO Q4H PRN AGITATION Lidocaine 2 patch 01/08/17 14:15 01/28/17 09:02 Lidoderm Patch - TP Not Given DAILY REINIER Loperamide HCl 4 mg 12/31/16 14:05 Imodium - PO Q6H PRN DIARRHEA Magnesium Citrate 300 ml 12/31/16 14:05 Citroma - PO Q48H PRN CONSTIPATION Magnesium Hydroxide 30 ml 12/31/16 14:05 Milk Of Magnesia - PO DAILY PRN CONSTIPATION Miscellaneous 1 each 01/08/17 22:00 01/27/17 21:45 Lidoderm Patch Removal MC 1 each DAILY@2200 REINIER Administration Multi-Ingredient Lotion 1 applic 01/16/17 14:15 01/28/17 09:03 Eucerin (Small Jar) - TP Not Given DAILY REINIER Nicotine 21 mg 12/31/16 14:15 01/28/17 09:02 Nicoderm Patch - TD Not Given DAILY REINIER Nicotine Polacrilex 4 mg 01/26/17 12:47 01/27/17 21:34 Nicorette Gum - BUC 4 mg Q2H PRN Administration NICOTINE REPLACEMENT RX Pantoprazole Sodium 40 mg 01/09/17 10:00 01/28/17 09:01 Protonix - PO 40 mg DAILY REINIER Administration Multivit/Folic Acid/Iron 1 tab 01/01/17 10:00 01/28/17 09:01 Vitamins (Sjr) - PO 1 tab DAILY REINIER Administration Pseudoephedrine/Triprolidine 1 combo 12/31/16 14:05 Actifed - PO TID PRN NASAL CONGESTION Quetiapine Fumarate 250 mg 01/26/17 22:00 01/27/17 21:32 Seroquel - PO 250 mg HS REINIER Administration Ropinirole HCl 1 mg 12/31/16 22:00 01/27/17 21:34 Requip - PO 1 mg HS REINIER Administration Sertraline HCl 150 mg 01/01/17 10:00 01/28/17 09:02 Zoloft - PO 150 mg DAILY REINIER Administration Sulfasalazine 1,000 mg 12/31/16 22:00 01/28/17 09:01 Azulfidine - PO 1,000 mg BID REINIER Administration Thiamine HCl 100 mg 12/31/16 22:00 01/27/17 21:31 Vitamin B1 - PO 100 mg HS REINIER Administration Current Side Effect: No Lab tests ordered: No Lab tests reviewed: Yes Provider note:: Patient completed this program today.She has met her treatment goals and will continue to address her issues on outpatient basis .Patient reports finding that current medications:Elavil 25 mg po hs,Seroquel 250 mg po hs,Gabapentin 500 mg po tid and Buspar 15 mg po bid help to cope with anxiety, mood swings,depression.Scripts for 30 days provided. Supportive therapy provided focusing on relapse prevention,coping skills support utilization has been discussd with the patient. Patient is stable for discharge today. Total face to face time:: 30 Mental Status Exam - Mental Status Exam Alert and Oriented to: Time, Place, Person Cognitive Function: Grossly Intact Patient Appearance: Well Groomed Mood: Euthymic Affect: Mood Congruent Patient Behavior: Cooperative Speech Pattern: Clear Voice Loudness: Normal Thought Process: Goal Oriented Thought Disorder: Not Present Hallucinations: Denies Suicidal Ideation: Denies Homicidal Ideation: Denies Insight/Judgement: Fair Sleep: Fair Appetite: Good Muscle strength/Tone: Normal Gait/Station: Normal Psychiatric Treatment Plan - Problem List (4) GERD (gastroesophageal reflux disease) Qualifiers: Esophagitis presence: esophagitis presence not specified Qualified Code(s) : K21.9 - Gastro-esophageal reflux disease without esophagitis (8) Hypertension Qualifiers: Hypertension type: essential hypertension Qualified Code(s): I10 - Essential (primary) hypertension
[2017-01-28] MEDS ORDERED: PT OWN MED DRAWER 7, Y5N ONE (10:23)
== END 2017-01-28 09:55 | disposition home or self-care (01) | DRG 772 ==
LOC: YASAS 11:22 → Y3E 13:30
PROVIDERS: ADMIT Psychiatry & Neurology Psychiatry; ATTEND Psychiatry & Neurology Psychiatry
PROC: HZ42ZZZ Group Counseling for Substance Abuse Treatment, Cognitive-Behavioral (ICD-10-PCS; principal; 2016-12-31)
DX: F10.20 Alcohol dependence, uncomplicated (principal); F12.20 Cannabis dependence, uncomplicated; F17.210 Nicotine dependence, cigarettes, uncomplicated; F19.24 Other psychoactive substance dependence with psychoactive substance-induced mood disorder; K21.9 Gastro-esophageal reflux disease without esophagitis; M79.7 Fibromyalgia; D50.9 Iron deficiency anemia, unspecified; E78.00 Pure hypercholesterolemia, unspecified; I10 Essential (primary) hypertension; D22.5 Melanocytic nevi of trunk; A69.20 Lyme disease, unspecified; G62.9 Polyneuropathy, unspecified; R79.89 Other specified abnormal findings of blood chemistry; M65.4 Radial styloid tenosynovitis [de Quervain]
CPT/HCPCS: 36415; 80053; 81003; 85027; 86593; 93005; 93010

== ENCOUNTER 2018-04-27 15:20 | Inpatient (IN) | payer OTHER ==
[2018-04-27 17:48] VITALS: BMI 35.8
--- NOTE | 2018-04-27 19:49 | HP ---
CIWA Score - Admission Criteria [facility]ASAS Guidelines: Admission for Medically Managed Detox: Requires at least one of the followin. CIWA greater than 12 2. Seizures within the past 24 hours 3. Delirium tremens within the past 24 hours 4. Hallucinations within the past 24 hours 5. Acute intervention needed for co occurring medical disorder 6. Acute intervention needed for co occurring psychiatric disorder 7. Severe withdrawal that cannot be handled at a lower level of care (continued vomiting, continued diarrhea, abnormal vital signs) requiring intravenous medication and/or fluids 8. Admission ROS [facility] - HPI Chief Complaint: " alcohol rehabilitation" Allergies/Adverse Reactions: Allergies Allergy/AdvReac Type Severity Reaction Status Date / Time No Known Allergies Allergy Verified 04/27/18 18:50 History of Present Illness: 43 yo female with hx of alcohol and nicotine dependence is here seeking rehabilitations, patient is mandated by drug court to complete program. Patient reports was referred by her outpatient program [facility] to complete in patient rehabilitation. PMHX: sleep apnea, RA, fibromyalgia, gout, HTN, Hyperlipidemia , Osteopenia, Anemia, gastric sleeve sx ( seven weeks ago). Psych: Anxiety, depression, PTSD. Denies hx of seizures or blackouts. Denies suicidal / homicidal ideation. Longest period of sobriety 14 months. Exam Limitations: No Limitations - Ebola screening Have you traveled outside of the country in the last 21 days: No Have you had contact with anyone from an Ebola affected area: No Have you been sick,other than usual withdrawal symptoms: No Do you have a fever: No - Review of Systems Constitutional: See HPI EENT: reports: No Symptoms Reported Respiratory: reports: No Symptoms reported Cardiac: reports: No Symptoms Reported GI: reports: No Symptoms Reported : reports: No Symptoms Reported Musculoskeletal: reports: See HPI, Joint Pain Integumentary: reports: No Symptoms Reported Neuro: reports: See HPI Endocrine: reports: No Symptoms Reported Hematology: reports: See HPI, Anemia Psychiatric: reports: Mood/Affect Appropiate, Orientated x3 Other Systems: Reviewed and Negative Patient History - Patient Medical History Hx Anemia: Yes (Iron-Deficency (Received infusions Q 3 months previously).) Hx Asthma: No Hx Chronic Obstructive Pulmonary Disease (COPD): No Hx Cancer: No Hx Cardiac Disorders: No Hx Congestive Heart Failure: No Hx Hypertension: Yes (On med.) Hx Hypercholesterolemia: Yes (On med.) Hx Pacemaker: No HX Cerebrovascular Accident: No Hx Seizures: No Hx Dementia: No Hx Diabetes: No Hx Gastrointestinal Disorders: Yes (acid reflux) Hx Liver Disease: No (History of Abnormal Liver Enzymers due to medications.) Hx Genitourinary Disorders: No Hx Sexually Transmitted Disorders: No Hx Renal Disease (ESRD): No Hx Thyroid Disease: No Hx Human Immunodeficiency Virus (HIV): No (Last Tested: 07/2016: NEGATIVE.) Hx Hepatitis C: No (Last Tested: 07/2016: NEGATIVE.) Hx Depression: Yes (On meds.) Hx Suicide Attempt: No (PATIENT DENIES CURRENT SI / HI.) Hx Bipolar Disorder: No Hx Schizophrenia: No - Patient Surgical History Past Surgical History: Yes Hx Neurologic Surgery: No Hx Cataract Extraction: No Hx Cardiac Surgery: No Hx Lung Surgery: No Hx Breast Surgery: No Hx Breast Biopsy: No Hx Abdominal Surgery: Yes (hysterectomy in 04/27/2014) Hx Appendectomy: Yes (in 10/1985) Hx Cholecystectomy: No Hx Genitourinary Surgery: No Hx Section: No Hx Orthopedic Surgery: No Anesthesia Reaction: No - PPD History Previous Implant?: No Documented Results: Negative w/o proof Date: 01/02/17 PPD to be Administered?: Yes - Reproductive History Patient is a Female of Child Bearing Age (11 -55 yrs old): Yes (hx of hysctorectomy ) Last Menstrual Period: 04/13/14 - Smoking Cessation Smoking history: Current every day smoker Have you smoked in the past 12 months: Yes Aproximately how many cigarettes per day: 15 Cigars Per Day: 0 Hx Chewing Tobacco Use: No Initiated information on smoking cessation: Yes 'Breaking Loose' booklet given: 04/27/18 - Substance & Tx. History Hx Alcohol Use: Yes Hx Substance Use: Yes Substance Use Type: Alcohol Hx Substance Use Treatment: Yes (Last rehab [facility] 2016) - Substances Abused Alcohol Route: Oral Frequency: 3-6 times per week Amount used: 12 pack beer + 1 pint opf liquor Age of first use: 19 Date of Last Use: 03/30/18 Family Disease History - Family Disease History Family Disease History: Diabetes: Grandparent (CHF), Heart Disease: Grandparent , CA: Grandparent, Father (Leukemia; Depression.), Mother (Breast Ca; Depression.), Brother (Pancreatic Ca.), Other: Father, Mother Admission Physical Exam [facility] - Vital Signs Vital Signs: Vital Signs - 24 hr 04/27/18 17:45 Temperature 96.8 F L Pulse Rate 91 H Respiratory 18 Rate Blood Pressure 120/77 - Physical General Appearance: Yes: Appropriately Dressed, Obese, Anxious HEENTM: Yes: EOMI, Hearing grossly Normal, Normal ENT Inspection, Normocephalic , Normal Voice, DESIREE, Pharynx Normal, Tm's normal Respiratory: Yes: Chest Non-Tender, Lungs Clear, Normal Breath Sounds, No Respiratory Distress, No Accessory Muscle Use Neck: Yes: Within Normal Limits Breast: Yes: Breast Exam Deferred Cardiology: Yes: Within Normal Limits Abdominal: Yes: Normal Bowel Sounds, Non Tender, Flat, Soft Genitourinary: Yes: Within Normal Limits Back: Yes: Normal Inspection Musculoskeletal: Yes: full range of Motion, Gait Steady, Pelvis Stable Extremities: Yes: Normal Capillary Refill, Normal Inspection, Normal Range of Motion, Non-Tender Neurological: Yes: policy writer II-XII NML intact, Fully Oriented, Alert, Motor Strength 5/5, Depressed Affect Integumentary: Yes: Normal Color, Dry, Warm Lymphatic: Yes: Within Normal Limits - Diagnostic (1) Rheumatoid arthritis Current Visit: Yes Status: Acute (2) Gout Current Visit: Yes Status: Acute (3) History of gastric restrictive surgery Current Visit: Yes Status: Acute (4) Hyperlipidemia Current Visit: Yes Status: Acute (5) Fibromyalgia Current Visit: No Status: Chronic (6) History of iron deficiency anemia Current Visit: No Status: Chronic (7) Hypertension Current Visit: No Status: Chronic Qualifiers: Hypertension type: essential hypertension Qualified Code(s): I10 - Essential (primary) hypertension [facility] Breath Alcohol Content Breath Alcohol Content: 0 Urine Pregancy Test - Result Urine Test Results: Negative - NO Line Present Urine Drug Screen - Results Drug Screen Negative: No Urine Drug Screen Results: BZO-Benzodiazepines Inpatient Rehab Admission - Rehab Decision to Admit Inpatient rehab admission?: Yes - Initial Determination Are CD services needed?: Yes Free of communicable disease: Yes Not in need of hospitalization: Yes - Rehab Admission Criteria Previous failed treatment: Yes Poor recovery environment: Yes Comorbidities: Yes Lacks judgement: Yes Patient is meeting Inpatient Rehab admission criteria:: Yes
[2018-04-27] MEDS ORDERED: P-EPHED 60MG/TRIPROLIDI 2.5MG TABLET PO PRN (19:59)
[2018-04-27] MEDS ORDERED: MAGNESIUM HYDROX 2400MG/30ML ORAL SUSPENSION 30 ML CUP PO PRN (19:59)
[2018-04-27] MEDS ORDERED: LOPERAMIDE HCL 2 MG CAPSULE PO PRN (19:59)
[2018-04-27] MEDS ORDERED: MENTHOL/PHENOL 1 EACH UD MM PRN (19:59)
[2018-04-27] MEDS ORDERED: guaiFENesin 200 MG/10 ML 10 ML UNIT-DOSE CUPS PO PRN (19:59)
[2018-04-27] MEDS ORDERED: MAG HYDROX/AL HYDROX/SIMETH 30 ML UNIT-DOSE CUP PO PRN (19:59)
[2018-04-27] MEDS ORDERED: MAGNESIUM CITRATE 300 ML BOTTLE PO PRN (19:59)
[2018-04-27] MEDS: THIAMINE HCL 100 MG TABLET (FP) PO SCH (23:32)
[2018-04-28] MEDS ORDERED: PT OWN MED DRAWER 7, Y5N ONE (08:50)
[2018-04-28] MEDS: PRENATAL VITAMINS W/ FOLIC ACID TABLET (FP) PO SCH (09:34)
[2018-04-28] MEDS: NICOTINE 14 MG/24 HOURS TOPICAL PATCH TD SCH (09:34)
[2018-04-28] MEDS: PANTOPRAZOLE 20 MG TABLET (FP) PO SCH (09:35)
[2018-04-28] MEDS: amLODIPine BESYLATE 5 MG TABLET (FP) PO SCH (09:35)
[2018-04-28] MEDS: NICOTINE POLACRILEX 2 MG GUM BC PRN (09:37)
[2018-04-28] MEDS: ALLOPURINOL 300 MG TABLET (FP) PO SCH (10:38)
[2018-04-28 11:35] LABS: HEMATOCRIT 35.2 % (32.4-45.2); HEMOGLOBIN 11.7 GM/dL (10.7-15.3); MCH 29.6 pg (25.7-33.7); MCHC 33.3 g/dl (32.0-36.0); MEAN CELL VOLUME 88.9 fl (80-96); MEAN PLT VOLUME 7.6 fl (7.5-11.1); PLATELET COUNT 370 K/MM3 (134-434); RBC 3.96 M/mm3 (3.60-5.2); RDW 29.4 % (11.6-15.6); WHITE BLOOD COUNT 3.4 K/mm3 (4.0-10.0)
--- NOTE | 2018-04-28 12:03 | EKG ---
Test Reason : Blood Pressure : / mmHG Vent. Rate : 080 BPM Atrial Rate : 080 BPM P-R Int : 164 ms QRS Dur : 092 ms QT Int : 394 ms P-R-T Axes : 027 084 059 degrees QTc Int : 454 ms NORMAL SINUS RHYTHM NORMAL ECG WHEN COMPARED WITH ECG OF 31-DEC-2016 18:02, NO SIGNIFICANT CHANGE WAS FOUND Confirmed by MAYTE ALVARENGA MD ([id number]) on 04/28/2018 12:02:50 PM Referred By: Confirmed By:MAYTE ALVARENGA MD
[2018-04-28 12:07] LABS: ALBUMIN 3.8 g/dl (3.4-5.0); ALK PHOS 116 U/L (45-117); ANION GAP 8 MMOL/L (8-16); BILIRUBIN,TOTAL 0.2 mg/dL (0.2-1); BLOOD UREA NITROGEN 14 mg/dL (7-18); CALCIUM 8.9 mg/dL (8.5-10.1); CHLORIDE 109 mmol/L (98-107); CO2 24 mmol/L (21-32); CREATININE 0.8 mg/dL (0.55-1.3); GLUCOSE,RANDOM 160 mg/dL (74-106); POTASSIUM 4.3 mmol/L (3.5-5.1); SGOT/AST 25 U/L (15-37); SGPT/ALT 37 U/L (13-61); SODIUM 141 mmol/L (136-145); TOT PROT 6.8 g/dl (6.4-8.2)
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
[2018-04-28] MEDS: SERTRALINE HCL 50 MG TABLET (FP) PO SCH (15:05)
--- NOTE | 2018-04-28 15:54 | PN ---
S Progress Note Note: patient had a gastric sleeve. Needs a soft diet, Metamucil, increased hydration. Orders placed, dietary consult ordered to review diet with patient.
[2018-04-28 19:46] LABS: URINE APPEARANCE CLEAR; URINE BILIRUBIN NEGATIVE (<2.0 mg/dL); URINE COLOR DK YELLOW; URINE GLUCOSE (UA) NEGATIVE (NEGATIVE); URINE KETONE NEGATIVE (NEGATIVE); URINE LEUK ESTERASE NEGATIVE (NEGATIVE); URINE NITRITE NEGATIVE (NEGATIVE); URINE PROTEIN NEGATIVE (NEGATIVE); URINE UROBILINOGEN 0.2 mg/dL (0.2-1.0)
[2018-04-28] MEDS: THIAMINE HCL 100 MG TABLET (FP) PO SCH (21:33)
[2018-04-28] MEDS: AMITRIPTYLINE HCL 25 MG TABLET (FP) PO SCH (21:34)
[2018-04-29] MEDS: PSYLLIUM 5.85 GM PACKET PO SCH (09:59)
[2018-04-29] MEDS: NICOTINE 14 MG/24 HOURS TOPICAL PATCH TD SCH (10:00)
[2018-04-29] MEDS: amLODIPine BESYLATE 5 MG TABLET (FP) PO SCH (10:00)
[2018-04-29] MEDS: SERTRALINE HCL 50 MG TABLET (FP) PO SCH (10:01)
[2018-04-29] MEDS: PRENATAL VITAMINS W/ FOLIC ACID TABLET (FP) PO SCH (10:01)
[2018-04-29] MEDS: PANTOPRAZOLE 20 MG TABLET (FP) PO SCH (10:01)
[2018-04-29] MEDS: ALLOPURINOL 300 MG TABLET (FP) PO SCH (10:02)
--- NOTE | 2018-04-29 10:04 | PN ---
[facility] Progress Note Note: Home meds renewed, missing medications ordered.
[2018-04-29] MEDS ORDERED: PT OWN MED DRAWER 7, Y5N ONE ×3 (10:40→21:14)
--- NOTE | 2018-04-29 11:45 | PN ---
[facility] Progress Note (SOAP) Subjective: patient with lower back pain; lidoderm patch ordered.
[2018-04-29] MEDS: LIDOCAINE 5% TOPICAL PATCH TP SCH (12:45)
[2018-04-29] MEDS: GABAPENTIN 300 MG CAPSULE (FP) PO SCH ×2 (13:04→21:10)
[2018-04-29] MEDS: AMITRIPTYLINE HCL 25 MG TABLET (FP) PO SCH (21:10)
[2018-04-29] MEDS: THIAMINE HCL 100 MG TABLET (FP) PO SCH (21:10)
[2018-04-29] MEDS: LIDOCAINE PATCH REMOVAL MC SCH (21:12)
[2018-04-29] MEDS: rOPINIRole HCL 0.5 MG TABLET PO SCH (21:13)
[2018-04-29] MEDS: ATORVASTATIN CA 10 MG TABLET (FP) PO SCH (21:15)
[2018-04-30] MEDS: GABAPENTIN 300 MG CAPSULE (FP) PO SCH ×3 (06:43→21:35)
[2018-04-30] MEDS ORDERED: PT OWN MED DRAWER 7, Y5N ONE (08:52)
[2018-04-30] MEDS: NICOTINE 14 MG/24 HOURS TOPICAL PATCH TD SCH (10:00)
[2018-04-30] MEDS: PSYLLIUM 5.85 GM PACKET PO SCH (10:00)
[2018-04-30] MEDS: LIDOCAINE 5% TOPICAL PATCH TP SCH (10:01)
[2018-04-30] MEDS: ALLOPURINOL 300 MG TABLET (FP) PO SCH (10:01)
[2018-04-30] MEDS: SERTRALINE HCL 50 MG TABLET (FP) PO SCH (10:02)
[2018-04-30] MEDS: PRENATAL VITAMINS W/ FOLIC ACID TABLET (FP) PO SCH (10:02)
[2018-04-30] MEDS: PANTOPRAZOLE 20 MG TABLET (FP) PO SCH (10:02)
[2018-04-30] MEDS: amLODIPine BESYLATE 5 MG TABLET (FP) PO SCH (10:02)
[2018-04-30] MEDS: THIAMINE HCL 100 MG TABLET (FP) PO SCH (21:34)
[2018-04-30] MEDS: ATORVASTATIN CA 10 MG TABLET (FP) PO SCH (21:35)
[2018-04-30] MEDS: AMITRIPTYLINE HCL 25 MG TABLET (FP) PO SCH (21:35)
[2018-04-30] MEDS: LIDOCAINE PATCH REMOVAL MC SCH (21:36)
[2018-04-30] MEDS: rOPINIRole HCL 0.5 MG TABLET PO SCH (21:39)
[2018-05-01] MEDS: GABAPENTIN 300 MG CAPSULE (FP) PO SCH ×3 (06:41→21:27)
[2018-05-01] MEDS ORDERED: PT OWN MED DRAWER 7, Y5N ONE ×2 (08:19→19:58)
[2018-05-01] MEDS: ALLOPURINOL 300 MG TABLET (FP) PO SCH (09:55)
[2018-05-01] MEDS: PRENATAL VITAMINS W/ FOLIC ACID TABLET (FP) PO SCH (09:56)
[2018-05-01] MEDS: LIDOCAINE 5% TOPICAL PATCH TP SCH (09:56)
[2018-05-01] MEDS: PSYLLIUM 5.85 GM PACKET PO SCH (09:56)
[2018-05-01] MEDS: amLODIPine BESYLATE 5 MG TABLET (FP) PO SCH (09:56)
[2018-05-01] MEDS: PANTOPRAZOLE 20 MG TABLET (FP) PO SCH (09:56)
[2018-05-01] MEDS: NICOTINE 14 MG/24 HOURS TOPICAL PATCH TD SCH (09:56)
[2018-05-01] MEDS: SERTRALINE HCL 50 MG TABLET (FP) PO SCH (09:57)
[2018-05-01] MEDS: AMITRIPTYLINE HCL 25 MG TABLET (FP) PO SCH (21:27)
[2018-05-01] MEDS: THIAMINE HCL 100 MG TABLET (FP) PO SCH (21:28)
[2018-05-01] MEDS: LIDOCAINE PATCH REMOVAL MC SCH (21:28)
[2018-05-01] MEDS: ATORVASTATIN CA 10 MG TABLET (FP) PO SCH (21:28)
[2018-05-01] MEDS: rOPINIRole HCL 0.5 MG TABLET PO SCH (21:31)
[2018-05-02] MEDS: GABAPENTIN 300 MG CAPSULE (FP) PO SCH ×3 (06:32→21:19)
[2018-05-02] MEDS: LIDOCAINE 5% TOPICAL PATCH TP SCH (09:28)
[2018-05-02] MEDS: PSYLLIUM 5.85 GM PACKET PO SCH (09:30)
[2018-05-02] MEDS: PRENATAL VITAMINS W/ FOLIC ACID TABLET (FP) PO SCH (09:30)
[2018-05-02] MEDS: SERTRALINE HCL 50 MG TABLET (FP) PO SCH (09:30)
[2018-05-02] MEDS: amLODIPine BESYLATE 5 MG TABLET (FP) PO SCH (09:30)
[2018-05-02] MEDS: ALLOPURINOL 300 MG TABLET (FP) PO SCH (09:31)
[2018-05-02] MEDS: PANTOPRAZOLE 20 MG TABLET (FP) PO SCH (09:31)
[2018-05-02] MEDS: MINERAL OIL/PETROLAT/WATER TOPICAL CREAM 454 GM JAR TP PRN (09:32)
[2018-05-02] MEDS: NICOTINE 14 MG/24 HOURS TOPICAL PATCH TD SCH (09:32)
[2018-05-02] MEDS ORDERED: PT OWN MED DRAWER 7, Y5N ONE ×4 (09:32→19:32)
[2018-05-02] MEDS: THIAMINE HCL 100 MG TABLET (FP) PO SCH (21:16)
[2018-05-02] MEDS: AMITRIPTYLINE HCL 25 MG TABLET (FP) PO SCH (21:16)
[2018-05-02] MEDS: ATORVASTATIN CA 10 MG TABLET (FP) PO SCH (21:16)
[2018-05-02] MEDS: LIDOCAINE PATCH REMOVAL MC SCH (21:16)
[2018-05-02] MEDS: rOPINIRole HCL 0.5 MG TABLET PO SCH (21:18)
[2018-05-02] MEDS: ACETAMINOPHEN 325 MG TABLET (FP) PO PRN (21:18)
[2018-05-03] MEDS: GABAPENTIN 300 MG CAPSULE (FP) PO SCH ×3 (06:33→20:11)
[2018-05-03] MEDS ORDERED: PT OWN MED DRAWER 7, Y5N ONE ×3 (08:30→21:15)
[2018-05-03] MEDS: LIDOCAINE 5% TOPICAL PATCH TP SCH (09:46)
[2018-05-03] MEDS: PANTOPRAZOLE 20 MG TABLET (FP) PO SCH (09:47)
[2018-05-03] MEDS: SERTRALINE HCL 50 MG TABLET (FP) PO SCH (09:47)
[2018-05-03] MEDS: PRENATAL VITAMINS W/ FOLIC ACID TABLET (FP) PO SCH (09:47)
[2018-05-03] MEDS: amLODIPine BESYLATE 5 MG TABLET (FP) PO SCH (09:47)
[2018-05-03] MEDS: NICOTINE 14 MG/24 HOURS TOPICAL PATCH TD SCH (09:47)
[2018-05-03] MEDS: ALLOPURINOL 300 MG TABLET (FP) PO SCH (09:47)
[2018-05-03] MEDS: ERGOCALCIFEROL (VITAMIN D2) 50,000 UNIT CAPSULE (FP) PO SCH (09:48)
[2018-05-03] MEDS: PSYLLIUM 5.85 GM PACKET PO SCH (09:50)
[2018-05-03] MEDS: NICOTINE POLACRILEX 2 MG GUM BC PRN (13:43)
--- NOTE | 2018-05-03 16:15 | PN ---
[facility] Progress Note Note: PT REQUESTING SOME OF HER MEDICATION TIMES BE CHANGED TO 8:00 PM. ALSO, PT AND HER COUNSELOR, OSIRIS HAN INFORMED TOLL TEST WORKER THAT PATIENT IS MANDATED BY [facility] AND REQUESTING FOR VIVITROL MAT. Vital Signs (72 hours) 05/01/18 05/01/18 05/01/18 00:30 03:30 07:14 Temperature 97.8 F Pulse Rate 85 Respiratory 18 18 18 Rate Blood Pressure 148/97 05/01/18 05/02/18 05/02/18 09:05 00:30 03:30 Temperature Pulse Rate 99 H Respiratory 16 18 18 Rate Blood Pressure 135/84 05/02/18 05/02/18 05/03/18 07:06 09:20 00:30 Temperature 97.7 F Pulse Rate 86 97 H Respiratory 16 17 18 Rate Blood Pressure 137/92 112/74 05/03/18 05/03/18 05/03/18 03:30 07:05 09:57 Temperature 98.1 F Pulse Rate 97 H 96 H Respiratory 18 18 Rate Blood Pressure 138/87 125/82 Laboratory Tests 04/28/18 04/28/18 04/28/18 07:45 07:45 07:45 WBC 3.4 L RBC 3.96 Hgb 11.7 Hct 35.2 MCV 88.9 MCH 29.6 MCHC 33.3 RDW 29.4 H Plt Count 370 D MPV 7.6 Sodium 141 Potassium 4.3 Chloride 109 H Carbon Dioxide 24 Anion Gap 8 BUN 14 Creatinine 0.8 Creat Clearance w eGFR 77.57 POC Glucometer Random Glucose 160 H Calcium 8.9 Total Bilirubin 0.2 AST 25 ALT 37 Alkaline Phosphatase 116 Total Protein 6.8 Albumin 3.8 Urine Color Urine Appearance Urine pH Ur Specific [place] Urine Protein Urine Glucose (UA) Urine Ketones Urine Blood Urine Nitrite Urine Bilirubin Urine Urobilinogen Ur Leukocyte Esterase RPR Titer Nonreactive 04/28/18 04/28/18 04/29/18 12:10 16:51 06:18 WBC RBC Hgb Hct MCV MCH MCHC RDW Plt Count MPV Sodium Potassium Chloride Carbon Dioxide Anion Gap BUN Creatinine Creat Clearance w eGFR POC Glucometer 94 104 Random Glucose Calcium Total Bilirubin AST ALT Alkaline Phosphatase Total Protein Albumin Urine Color Dk yellow Urine Appearance Clear Urine pH 8.0 D Ur Specific [place] 1.017 Urine Protein Negative Urine Glucose (UA) Negative Urine Ketones Negative Urine Blood Negative Urine Nitrite Negative Urine Bilirubin Negative Urine Urobilinogen 0.2 Ur Leukocyte Esterase Negative RPR Titer 04/29/18 04/30/18 04/30/18 16:49 06:45 16:43 WBC RBC Hgb Hct MCV MCH MCHC RDW Plt Count MPV Sodium Potassium Chloride Carbon Dioxide Anion Gap BUN Creatinine Creat Clearance w eGFR POC Glucometer 138 97 108 Random Glucose Calcium Total Bilirubin AST ALT Alkaline Phosphatase Total Protein Albumin Urine Color Urine Appearance Urine pH Ur Specific [place] Urine Protein Urine Glucose (UA) Urine Ketones Urine Blood Urine Nitrite Urine Bilirubin Urine Urobilinogen Ur Leukocyte Esterase RPR Titer 05/01/18 05/01/18 06:41 16:35 WBC RBC Hgb Hct MCV MCH MCHC RDW Plt Count MPV Sodium Potassium Chloride Carbon Dioxide Anion Gap BUN Creatinine Creat Clearance w eGFR POC Glucometer 102 100 Random Glucose Calcium Total Bilirubin AST ALT Alkaline Phosphatase Total Protein Albumin Urine Color Urine Appearance Urine pH Ur Specific [place] Urine Protein Urine Glucose (UA) Urine Ketones Urine Blood Urine Nitrite Urine Bilirubin Urine Urobilinogen Ur Leukocyte Esterase RPR Titer URINE DRUG SCREEN RESULTS Drug Screen Negative No Drug Screen Negative No Drug Screen Negative No Urine Drug Screen Results BZO-Benzodiazepines Urine Drug Screen Results BZO-Benzodiazepines Urine Drug Screen Results BZO-Benzodiazepines Urine Test Results Urine Color Dk yellow 04/28/18 12:10 Urine Appearance Clear 04/28/18 12:10 Urine pH 8.0 (5.0-8.0) D 04/28/18 12:10 Ur Specific [place] 1.017 (1.010-1.035) 04/28/18 12:10 Urine Protein Negative (NEGATIVE) 04/28/18 12:10 Urine Glucose (UA) Negative (NEGATIVE) 04/28/18 12:10 Urine Ketones Negative (NEGATIVE) 04/28/18 12:10 Urine Blood Negative (NEGATIVE) 04/28/18 12:10 Urine Nitrite Negative (NEGATIVE) 04/28/18 12:10 Urine Bilirubin Negative (<2.0 mg/dL) 04/28/18 12:10 Ur Leukocyte Esterase Negative (NEGATIVE) 04/28/18 12:10 URINE TEST NEGATIVE. NAD PLAN:DISCUSSED WITH PATIENT RE:VIVITROL TREATMENT MODALITY URINE DRUG SCREEN PT WILL MEET WITH HER COUNSELOR MS OSIRIS HAN TO SET UP AFTERCARE LOCATION FOR PT'S CONTINUED CARE. WILL START NALTREXONE CHALLENGE WITH 25 MG PO X 1 AND RE-EVALUATE WHEN SET UP IS COMPLETED BY COUNSELOR.
[2018-05-03] MEDS: rOPINIRole HCL 0.5 MG TABLET PO SCH (20:11)
[2018-05-03] MEDS: THIAMINE HCL 100 MG TABLET (FP) PO SCH (20:11)
[2018-05-03] MEDS: ATORVASTATIN CA 10 MG TABLET (FP) PO SCH (21:13)
[2018-05-03] MEDS: LIDOCAINE PATCH REMOVAL MC SCH (21:13)
[2018-05-03] MEDS: AMITRIPTYLINE HCL 25 MG TABLET (FP) PO SCH (21:13)
[2018-05-03] MEDS: METHYL SALICYLATE/MENTHOL OINT 30 GM TUBE TP SCH (21:15)
[2018-05-03] MEDS: CYCLOBENZAPRINE HCL 10 MG TABLET (FP) PO SCH (21:15)
[2018-05-04] MEDS: GABAPENTIN 300 MG CAPSULE (FP) PO SCH ×3 (06:39→20:04)
[2018-05-04] MEDS: CYCLOBENZAPRINE HCL 10 MG TABLET (FP) PO SCH ×3 (06:39→23:03)
[2018-05-04] MEDS: NICOTINE POLACRILEX 2 MG GUM BC PRN (06:40)
[2018-05-04] MEDS: LIDOCAINE 5% TOPICAL PATCH TP SCH (10:13)
[2018-05-04] MEDS: PSYLLIUM 5.85 GM PACKET PO SCH (10:15)
[2018-05-04] MEDS: METHYL SALICYLATE/MENTHOL OINT 30 GM TUBE TP SCH ×2 (10:15→23:02)
[2018-05-04] MEDS: amLODIPine BESYLATE 5 MG TABLET (FP) PO SCH (10:16)
[2018-05-04] MEDS: NICOTINE 14 MG/24 HOURS TOPICAL PATCH TD SCH (10:16)
[2018-05-04] MEDS: PRENATAL VITAMINS W/ FOLIC ACID TABLET (FP) PO SCH (10:17)
[2018-05-04] MEDS: SERTRALINE HCL 50 MG TABLET (FP) PO SCH (10:17)
[2018-05-04] MEDS: PANTOPRAZOLE 20 MG TABLET (FP) PO SCH (10:17)
[2018-05-04] MEDS: ALLOPURINOL 300 MG TABLET (FP) PO SCH (10:17)
[2018-05-04] MEDS: busPIRone HCL 10 MG TABLET (FP) PO SCH ×2 (20:04→23:03)
[2018-05-04] MEDS: AMITRIPTYLINE HCL 25 MG TABLET (FP) PO SCH ×2 (20:04→23:03)
[2018-05-04] MEDS: ATORVASTATIN CA 10 MG TABLET (FP) PO SCH ×2 (20:04→23:03)
[2018-05-04] MEDS: THIAMINE HCL 100 MG TABLET (FP) PO SCH (20:06)
[2018-05-04] MEDS: rOPINIRole HCL 0.5 MG TABLET PO SCH (20:06)
[2018-05-04] MEDS: LIDOCAINE PATCH REMOVAL MC SCH (23:29)
[2018-05-05] MEDS: GABAPENTIN 300 MG CAPSULE (FP) PO SCH ×3 (06:25→19:47)
[2018-05-05] MEDS: CYCLOBENZAPRINE HCL 10 MG TABLET (FP) PO SCH ×3 (06:25→21:14)
[2018-05-05] MEDS ORDERED: PT OWN MED DRAWER 7, Y5N ONE ×2 (09:03→19:04)
[2018-05-05] MEDS: busPIRone HCL 10 MG TABLET (FP) PO SCH ×2 (10:20→21:13)
[2018-05-05] MEDS: NICOTINE 14 MG/24 HOURS TOPICAL PATCH TD SCH (10:20)
[2018-05-05] MEDS: PSYLLIUM 5.85 GM PACKET PO SCH (10:20)
[2018-05-05] MEDS: PRENATAL VITAMINS W/ FOLIC ACID TABLET (FP) PO SCH (10:20)
[2018-05-05] MEDS: PANTOPRAZOLE 20 MG TABLET (FP) PO SCH (10:20)
[2018-05-05] MEDS: LIDOCAINE 5% TOPICAL PATCH TP SCH (10:20)
[2018-05-05] MEDS: amLODIPine BESYLATE 5 MG TABLET (FP) PO SCH (10:20)
[2018-05-05] MEDS: METHYL SALICYLATE/MENTHOL OINT 30 GM TUBE TP SCH ×2 (10:21→21:13)
[2018-05-05] MEDS: ALLOPURINOL 300 MG TABLET (FP) PO SCH (10:22)
[2018-05-05] MEDS: NICOTINE POLACRILEX 2 MG GUM BC PRN (10:23)
[2018-05-05] MEDS: SERTRALINE HCL 50 MG TABLET (FP) PO SCH (11:00)
[2018-05-05] MEDS: ACETAMINOPHEN 325 MG TABLET (FP) PO PRN (13:52)
[2018-05-05] MEDS: THIAMINE HCL 100 MG TABLET (FP) PO SCH (19:47)
[2018-05-05] MEDS: rOPINIRole HCL 0.5 MG TABLET PO SCH (21:12)
[2018-05-05] MEDS: AMITRIPTYLINE HCL 25 MG TABLET (FP) PO SCH (21:13)
[2018-05-05] MEDS: ATORVASTATIN CA 10 MG TABLET (FP) PO SCH (21:13)
[2018-05-05] MEDS: LIDOCAINE PATCH REMOVAL MC SCH (21:14)
[2018-05-06] MEDS: GABAPENTIN 300 MG CAPSULE (FP) PO SCH ×3 (06:28→21:05)
[2018-05-06] MEDS: CYCLOBENZAPRINE HCL 10 MG TABLET (FP) PO SCH ×3 (06:30→21:05)
[2018-05-06] MEDS ORDERED: PT OWN MED DRAWER 7, Y5N ONE (08:24)
[2018-05-06] MEDS: PANTOPRAZOLE 20 MG TABLET (FP) PO SCH (09:40)
[2018-05-06] MEDS: busPIRone HCL 10 MG TABLET (FP) PO SCH ×2 (09:40→21:05)
[2018-05-06] MEDS: PRENATAL VITAMINS W/ FOLIC ACID TABLET (FP) PO SCH (09:40)
[2018-05-06] MEDS: SERTRALINE HCL 50 MG TABLET (FP) PO SCH (09:40)
[2018-05-06] MEDS: LIDOCAINE 5% TOPICAL PATCH TP SCH (09:40)
[2018-05-06] MEDS: amLODIPine BESYLATE 5 MG TABLET (FP) PO SCH (09:40)
[2018-05-06] MEDS: PSYLLIUM 5.85 GM PACKET PO SCH ×2 (09:42→21:04)
[2018-05-06] MEDS: ALLOPURINOL 300 MG TABLET (FP) PO SCH (09:43)
[2018-05-06] MEDS: NICOTINE 14 MG/24 HOURS TOPICAL PATCH TD SCH (09:43)
[2018-05-06] MEDS: METHYL SALICYLATE/MENTHOL OINT 30 GM TUBE TP SCH ×2 (10:51→21:07)
[2018-05-06] MEDS: THIAMINE HCL 100 MG TABLET (FP) PO SCH (21:03)
[2018-05-06] MEDS: AMITRIPTYLINE HCL 25 MG TABLET (FP) PO SCH (21:04)
[2018-05-06] MEDS: ATORVASTATIN CA 10 MG TABLET (FP) PO SCH (21:05)
[2018-05-06] MEDS: LIDOCAINE PATCH REMOVAL MC SCH (21:07)
[2018-05-06] MEDS: rOPINIRole HCL 0.5 MG TABLET PO SCH (21:08)
[2018-05-07] MEDS: GABAPENTIN 300 MG CAPSULE (FP) PO SCH ×3 (06:21→20:20)
[2018-05-07] MEDS: CYCLOBENZAPRINE HCL 10 MG TABLET (FP) PO SCH ×3 (06:23→21:21)
[2018-05-07] MEDS ORDERED: PT OWN MED DRAWER 7, Y5N ONE ×5 (09:02→20:09)
[2018-05-07] MEDS: PSYLLIUM 5.85 GM PACKET PO SCH ×2 (09:57→21:25)
[2018-05-07] MEDS: LIDOCAINE 5% TOPICAL PATCH TP SCH (09:57)
[2018-05-07] MEDS: busPIRone HCL 10 MG TABLET (FP) PO SCH ×2 (09:58→21:21)
[2018-05-07] MEDS: PRENATAL VITAMINS W/ FOLIC ACID TABLET (FP) PO SCH (09:58)
[2018-05-07] MEDS: PANTOPRAZOLE 20 MG TABLET (FP) PO SCH (09:58)
[2018-05-07] MEDS: SERTRALINE HCL 50 MG TABLET (FP) PO SCH (09:59)
[2018-05-07] MEDS: ALLOPURINOL 300 MG TABLET (FP) PO SCH (09:59)
[2018-05-07] MEDS: amLODIPine BESYLATE 5 MG TABLET (FP) PO SCH (09:59)
[2018-05-07] MEDS: NICOTINE 14 MG/24 HOURS TOPICAL PATCH TD SCH (10:00)
[2018-05-07] MEDS: METHYL SALICYLATE/MENTHOL OINT 30 GM TUBE TP SCH ×2 (10:00→21:24)
--- NOTE | 2018-05-07 12:02 | PN ---
[facility] Progress Note Note: PT REQUESTING FOR CAMPRAL MEDICATION TREATMENT FOR CHRONIC ALCOHOLISM. Vital Signs (72 hours) 05/05/18 05/05/18 05/05/18 00:30 03:30 07:10 Temperature 97.3 F L Pulse Rate 82 Respiratory 18 18 18 Rate Blood Pressure 122/84 05/05/18 05/06/18 05/06/18 09:46 00:30 03:30 Temperature Pulse Rate 96 H Respiratory 18 18 Rate Blood Pressure 133/82 05/06/18 05/06/18 05/07/18 07:11 09:17 00:30 Temperature 97.3 F L Pulse Rate 80 83 Respiratory 18 18 Rate Blood Pressure 123/86 121/77 05/07/18 05/07/18 05/07/18 03:30 06:59 09:12 Temperature 97.7 F Pulse Rate 93 H 91 H Respiratory 18 16 18 Rate Blood Pressure 116/73 115/76 Laboratory Tests 04/28/18 04/28/18 04/28/18 07:45 07:45 07:45 WBC 3.4 L RBC 3.96 Hgb 11.7 Hct 35.2 MCV 88.9 MCH 29.6 MCHC 33.3 RDW 29.4 H Plt Count 370 D MPV 7.6 Sodium 141 Potassium 4.3 Chloride 109 H Carbon Dioxide 24 Anion Gap 8 BUN 14 Creatinine 0.8 Creat Clearance w eGFR 77.57 POC Glucometer Random Glucose 160 H Calcium 8.9 Total Bilirubin 0.2 AST 25 ALT 37 Alkaline Phosphatase 116 Total Protein 6.8 Albumin 3.8 Urine Color Urine Appearance Urine pH Ur Specific [place] Urine Protein Urine Glucose (UA) Urine Ketones Urine Blood Urine Nitrite Urine Bilirubin Urine Urobilinogen Ur Leukocyte Esterase POC Urine HCG, Qual RPR Titer Nonreactive 04/28/18 04/28/18 04/29/18 12:10 16:51 06:18 WBC RBC Hgb Hct MCV MCH MCHC RDW Plt Count MPV Sodium Potassium Chloride Carbon Dioxide Anion Gap BUN Creatinine Creat Clearance w eGFR POC Glucometer 94 104 Random Glucose Calcium Total Bilirubin AST ALT Alkaline Phosphatase Total Protein Albumin Urine Color Dk yellow Urine Appearance Clear Urine pH 8.0 D Ur Specific [place] 1.017 Urine Protein Negative Urine Glucose (UA) Negative Urine Ketones Negative Urine Blood Negative Urine Nitrite Negative Urine Bilirubin Negative Urine Urobilinogen 0.2 Ur Leukocyte Esterase Negative POC Urine HCG, Qual RPR Titer 04/29/18 04/30/18 04/30/18 16:49 06:45 16:43 WBC RBC Hgb Hct MCV MCH MCHC RDW Plt Count MPV Sodium Potassium Chloride Carbon Dioxide Anion Gap BUN Creatinine Creat Clearance w eGFR POC Glucometer 138 97 108 Random Glucose Calcium Total Bilirubin AST ALT Alkaline Phosphatase Total Protein Albumin Urine Color Urine Appearance Urine pH Ur Specific [place] Urine Protein Urine Glucose (UA) Urine Ketones Urine Blood Urine Nitrite Urine Bilirubin Urine Urobilinogen Ur Leukocyte Esterase POC Urine HCG, Qual RPR Titer 05/01/18 05/01/18 05/05/18 06:41 16:35 13:24 WBC RBC Hgb Hct MCV MCH MCHC RDW Plt Count MPV Sodium Potassium Chloride Carbon Dioxide Anion Gap BUN Creatinine Creat Clearance w eGFR POC Glucometer 102 100 Random Glucose Calcium Total Bilirubin AST ALT Alkaline Phosphatase Total Protein Albumin Urine Color Urine Appearance Urine pH Ur Specific [place] Urine Protein Urine Glucose (UA) Urine Ketones Urine Blood Urine Nitrite Urine Bilirubin Urine Urobilinogen Ur Leukocyte Esterase POC Urine HCG, Qual Negative RPR Titer NAD PLAN;START CAMPRAL 666 MG PO TID
[2018-05-07] MEDS ORDERED: ACAMPROSATE CALCIUM 333 MG TABLET.DR PO SCH (14:00)
[2018-05-07] MEDS: ACAMPROSATE CALCIUM 333 MG TABLET.DR PO SCH ×2 (14:21→21:21)
[2018-05-07] MEDS: ACETAMINOPHEN 325 MG TABLET (FP) PO PRN (14:22)
[2018-05-07] MEDS: rOPINIRole HCL 0.5 MG TABLET PO SCH (20:24)
[2018-05-07] MEDS: ATORVASTATIN CA 10 MG TABLET (FP) PO SCH (21:21)
[2018-05-07] MEDS: THIAMINE HCL 100 MG TABLET (FP) PO SCH (21:21)
[2018-05-07] MEDS: MELATONIN 5 MG TABLETS PO PRN (21:21)
[2018-05-07] MEDS: AMITRIPTYLINE HCL 25 MG TABLET (FP) PO SCH (21:21)
[2018-05-07] MEDS: LIDOCAINE PATCH REMOVAL MC SCH (21:25)
[2018-05-08] MEDS ORDERED: PT OWN MED DRAWER 7, Y5N ONE ×2 (05:50→13:54)
[2018-05-08] MEDS: ACAMPROSATE CALCIUM 333 MG TABLET.DR PO SCH ×3 (06:29→21:09)
[2018-05-08] MEDS: GABAPENTIN 300 MG CAPSULE (FP) PO SCH ×3 (06:29→21:05)
[2018-05-08] MEDS: CYCLOBENZAPRINE HCL 10 MG TABLET (FP) PO SCH ×3 (06:29→21:05)
[2018-05-08] MEDS: PSYLLIUM 5.85 GM PACKET PO SCH ×2 (10:08→21:08)
[2018-05-08] MEDS: busPIRone HCL 10 MG TABLET (FP) PO SCH ×2 (10:09→21:06)
[2018-05-08] MEDS: METHYL SALICYLATE/MENTHOL OINT 30 GM TUBE TP SCH ×2 (10:09→21:06)
[2018-05-08] MEDS: PRENATAL VITAMINS W/ FOLIC ACID TABLET (FP) PO SCH (10:09)
[2018-05-08] MEDS: amLODIPine BESYLATE 5 MG TABLET (FP) PO SCH (10:09)
[2018-05-08] MEDS: NICOTINE 14 MG/24 HOURS TOPICAL PATCH TD SCH (10:09)
[2018-05-08] MEDS: SERTRALINE HCL 50 MG TABLET (FP) PO SCH (10:10)
[2018-05-08] MEDS: ALLOPURINOL 300 MG TABLET (FP) PO SCH (10:10)
[2018-05-08] MEDS: LIDOCAINE 5% TOPICAL PATCH TP SCH (10:10)
[2018-05-08] MEDS: PANTOPRAZOLE 20 MG TABLET (FP) PO SCH (10:10)
[2018-05-08] MEDS: MINERAL OIL/PETROLAT/WATER TOPICAL CREAM 454 GM JAR TP PRN (10:12)
[2018-05-08] MEDS: AMITRIPTYLINE HCL 25 MG TABLET (FP) PO SCH (21:05)
[2018-05-08] MEDS: THIAMINE HCL 100 MG TABLET (FP) PO SCH (21:05)
[2018-05-08] MEDS: ATORVASTATIN CA 10 MG TABLET (FP) PO SCH (21:05)
[2018-05-08] MEDS: rOPINIRole HCL 0.5 MG TABLET PO SCH (21:08)
[2018-05-08] MEDS: LIDOCAINE PATCH REMOVAL MC SCH (21:09)
[2018-05-09] MEDS ORDERED: PT OWN MED DRAWER 7, Y5N ONE ×3 (05:51→21:07)
[2018-05-09] MEDS: ACAMPROSATE CALCIUM 333 MG TABLET.DR PO SCH ×3 (06:34→21:09)
[2018-05-09] MEDS: CYCLOBENZAPRINE HCL 10 MG TABLET (FP) PO SCH ×3 (06:34→21:08)
[2018-05-09] MEDS: GABAPENTIN 300 MG CAPSULE (FP) PO SCH ×3 (06:35→21:04)
[2018-05-09] MEDS: PSYLLIUM 5.85 GM PACKET PO SCH ×2 (10:03→21:05)
[2018-05-09] MEDS: NICOTINE 14 MG/24 HOURS TOPICAL PATCH TD SCH (10:04)
[2018-05-09] MEDS: PRENATAL VITAMINS W/ FOLIC ACID TABLET (FP) PO SCH (10:04)
[2018-05-09] MEDS: METHYL SALICYLATE/MENTHOL OINT 30 GM TUBE TP SCH ×2 (10:04→21:05)
[2018-05-09] MEDS: ALLOPURINOL 300 MG TABLET (FP) PO SCH (10:04)
[2018-05-09] MEDS: SERTRALINE HCL 50 MG TABLET (FP) PO SCH (10:05)
[2018-05-09] MEDS: PANTOPRAZOLE 20 MG TABLET (FP) PO SCH (10:05)
[2018-05-09] MEDS: amLODIPine BESYLATE 5 MG TABLET (FP) PO SCH (10:05)
[2018-05-09] MEDS: busPIRone HCL 10 MG TABLET (FP) PO SCH ×2 (10:05→21:05)
[2018-05-09] MEDS: NICOTINE POLACRILEX 2 MG GUM BC PRN (10:06)
[2018-05-09] MEDS: LIDOCAINE 5% TOPICAL PATCH TP SCH (10:07)
[2018-05-09] MEDS: AMITRIPTYLINE HCL 25 MG TABLET (FP) PO SCH (21:04)
[2018-05-09] MEDS: THIAMINE HCL 100 MG TABLET (FP) PO SCH (21:04)
[2018-05-09] MEDS: ATORVASTATIN CA 10 MG TABLET (FP) PO SCH (21:05)
[2018-05-09] MEDS: LIDOCAINE PATCH REMOVAL MC SCH (21:05)
[2018-05-09] MEDS: rOPINIRole HCL 0.5 MG TABLET PO SCH (21:08)
[2018-05-09] MEDS: ACETAMINOPHEN 325 MG TABLET (FP) PO PRN (21:08)
[2018-05-10] MEDS ORDERED: PT OWN MED DRAWER 7, Y5N ONE ×4 (05:49→13:05)
[2018-05-10] MEDS: CYCLOBENZAPRINE HCL 10 MG TABLET (FP) PO SCH ×3 (06:19→21:07)
[2018-05-10] MEDS: GABAPENTIN 300 MG CAPSULE (FP) PO SCH ×3 (06:19→21:07)
[2018-05-10] MEDS: ACETAMINOPHEN 325 MG TABLET (FP) PO PRN ×2 (06:19→13:25)
[2018-05-10] MEDS: ACAMPROSATE CALCIUM 333 MG TABLET.DR PO SCH ×3 (06:19→21:10)
[2018-05-10] MEDS: METHYL SALICYLATE/MENTHOL OINT 30 GM TUBE TP SCH ×2 (10:29→21:10)
[2018-05-10] MEDS: PRENATAL VITAMINS W/ FOLIC ACID TABLET (FP) PO SCH (10:30)
[2018-05-10] MEDS: PANTOPRAZOLE 20 MG TABLET (FP) PO SCH (10:30)
[2018-05-10] MEDS: NICOTINE 14 MG/24 HOURS TOPICAL PATCH TD SCH (10:31)
[2018-05-10] MEDS: amLODIPine BESYLATE 5 MG TABLET (FP) PO SCH (10:31)
[2018-05-10] MEDS: SERTRALINE HCL 50 MG TABLET (FP) PO SCH (10:31)
[2018-05-10] MEDS: LIDOCAINE 5% TOPICAL PATCH TP SCH (10:32)
[2018-05-10] MEDS: PSYLLIUM 5.85 GM PACKET PO SCH ×2 (10:32→21:10)
[2018-05-10] MEDS: ALLOPURINOL 300 MG TABLET (FP) PO SCH (10:40)
[2018-05-10] MEDS: busPIRone HCL 10 MG TABLET (FP) PO SCH ×2 (12:14→21:07)
[2018-05-10] MEDS: ERGOCALCIFEROL (VITAMIN D2) 50,000 UNIT CAPSULE (FP) PO SCH (12:15)
[2018-05-10] MEDS: MELATONIN 5 MG TABLETS PO PRN (21:07)
[2018-05-10] MEDS: AMITRIPTYLINE HCL 25 MG TABLET (FP) PO SCH (21:07)
[2018-05-10] MEDS: THIAMINE HCL 100 MG TABLET (FP) PO SCH (21:07)
[2018-05-10] MEDS: ATORVASTATIN CA 10 MG TABLET (FP) PO SCH (21:07)
[2018-05-10] MEDS: rOPINIRole HCL 0.5 MG TABLET PO SCH (21:09)
[2018-05-10] MEDS: LIDOCAINE PATCH REMOVAL MC SCH (21:10)
[2018-05-11] MEDS ORDERED: PT OWN MED DRAWER 7, Y5N ONE ×5 (03:26→20:04)
[2018-05-11] MEDS: ACAMPROSATE CALCIUM 333 MG TABLET.DR PO SCH ×3 (06:20→20:00)
[2018-05-11] MEDS: GABAPENTIN 300 MG CAPSULE (FP) PO SCH ×3 (06:20→19:59)
[2018-05-11] MEDS: CYCLOBENZAPRINE HCL 10 MG TABLET (FP) PO SCH ×3 (06:20→21:43)
[2018-05-11] MEDS: METHYL SALICYLATE/MENTHOL OINT 30 GM TUBE TP SCH ×2 (09:56→21:42)
[2018-05-11] MEDS: busPIRone HCL 10 MG TABLET (FP) PO SCH ×2 (09:56→21:43)
[2018-05-11] MEDS: amLODIPine BESYLATE 5 MG TABLET (FP) PO SCH (09:57)
[2018-05-11] MEDS: LIDOCAINE 5% TOPICAL PATCH TP SCH (09:57)
[2018-05-11] MEDS: PSYLLIUM 5.85 GM PACKET PO SCH ×2 (09:57→21:43)
[2018-05-11] MEDS: NICOTINE 14 MG/24 HOURS TOPICAL PATCH TD SCH (09:57)
[2018-05-11] MEDS: PRENATAL VITAMINS W/ FOLIC ACID TABLET (FP) PO SCH (09:57)
[2018-05-11] MEDS: ALLOPURINOL 300 MG TABLET (FP) PO SCH (09:58)
[2018-05-11] MEDS: PANTOPRAZOLE 20 MG TABLET (FP) PO SCH (09:58)
[2018-05-11] MEDS: SERTRALINE HCL 50 MG TABLET (FP) PO SCH (09:58)
[2018-05-11] MEDS: ACETAMINOPHEN 325 MG TABLET (FP) PO PRN (09:59)
[2018-05-11] MEDS: NICOTINE POLACRILEX 2 MG GUM BC PRN (17:27)
[2018-05-11] MEDS: rOPINIRole HCL 0.5 MG TABLET PO SCH (19:59)
[2018-05-11] MEDS: MELATONIN 5 MG TABLETS PO PRN (20:01)
[2018-05-11] MEDS: THIAMINE HCL 100 MG TABLET (FP) PO SCH (20:02)
[2018-05-11] MEDS: LIDOCAINE PATCH REMOVAL MC SCH (21:43)
[2018-05-11] MEDS: ATORVASTATIN CA 10 MG TABLET (FP) PO SCH (21:43)
[2018-05-11] MEDS: AMITRIPTYLINE HCL 25 MG TABLET (FP) PO SCH (21:43)
[2018-05-12] MEDS ORDERED: PT OWN MED DRAWER 7, Y5N ONE ×3 (03:10→11:13)
[2018-05-12] MEDS: ACAMPROSATE CALCIUM 333 MG TABLET.DR PO SCH ×3 (06:19→21:12)
[2018-05-12] MEDS: CYCLOBENZAPRINE HCL 10 MG TABLET (FP) PO SCH ×3 (06:19→21:12)
[2018-05-12] MEDS: GABAPENTIN 300 MG CAPSULE (FP) PO SCH ×3 (06:19→21:10)
[2018-05-12] MEDS: PSYLLIUM 5.85 GM PACKET PO SCH ×2 (09:49→21:11)
[2018-05-12] MEDS: NICOTINE 14 MG/24 HOURS TOPICAL PATCH TD SCH (09:50)
[2018-05-12] MEDS: LIDOCAINE 5% TOPICAL PATCH TP SCH (09:50)
[2018-05-12] MEDS: ALLOPURINOL 300 MG TABLET (FP) PO SCH (09:51)
[2018-05-12] MEDS: SERTRALINE HCL 50 MG TABLET (FP) PO SCH (09:51)
[2018-05-12] MEDS: amLODIPine BESYLATE 5 MG TABLET (FP) PO SCH (09:52)
[2018-05-12] MEDS: PRENATAL VITAMINS W/ FOLIC ACID TABLET (FP) PO SCH (09:52)
[2018-05-12] MEDS: PANTOPRAZOLE 20 MG TABLET (FP) PO SCH (09:52)
[2018-05-12] MEDS: ACETAMINOPHEN 325 MG TABLET (FP) PO PRN (09:53)
[2018-05-12] MEDS: NICOTINE POLACRILEX 2 MG GUM BC PRN ×2 (09:53→13:06)
[2018-05-12] MEDS: METHYL SALICYLATE/MENTHOL OINT 30 GM TUBE TP SCH ×2 (09:54→21:13)
[2018-05-12] MEDS: MINERAL OIL/PETROLAT/WATER TOPICAL CREAM 454 GM JAR TP PRN (09:55)
[2018-05-12] MEDS ORDERED: busPIRone HCL 10 MG TABLET (FP) PO SCH ×2 (10:00→20:00)
[2018-05-12] MEDS: IBUPROFEN 400 MG TABLET (FP) PO PRN (13:05)
[2018-05-12] MEDS: THIAMINE HCL 100 MG TABLET (FP) PO SCH (21:09)
[2018-05-12] MEDS: busPIRone HCL 10 MG TABLET (FP) PO SCH (21:12)
[2018-05-12] MEDS: AMITRIPTYLINE HCL 25 MG TABLET (FP) PO SCH (21:12)
[2018-05-12] MEDS: ATORVASTATIN CA 10 MG TABLET (FP) PO SCH (21:14)
[2018-05-12] MEDS: LIDOCAINE PATCH REMOVAL MC SCH (21:14)
[2018-05-12] MEDS: rOPINIRole HCL 0.5 MG TABLET PO SCH (21:14)
[2018-05-13] MEDS ORDERED: PT OWN MED DRAWER 7, Y5N ONE ×4 (03:23→13:36)
[2018-05-13] MEDS: ACAMPROSATE CALCIUM 333 MG TABLET.DR PO SCH ×3 (06:12→19:47)
[2018-05-13] MEDS: GABAPENTIN 300 MG CAPSULE (FP) PO SCH ×3 (06:13→19:46)
[2018-05-13] MEDS: CYCLOBENZAPRINE HCL 10 MG TABLET (FP) PO SCH ×2 (06:13→13:44)
[2018-05-13] MEDS: NICOTINE POLACRILEX 2 MG GUM BC PRN (06:16)
[2018-05-13] MEDS: ACETAMINOPHEN 325 MG TABLET (FP) PO PRN (09:40)
[2018-05-13] MEDS: NICOTINE 14 MG/24 HOURS TOPICAL PATCH TD SCH (09:41)
[2018-05-13] MEDS: SERTRALINE HCL 50 MG TABLET (FP) PO SCH (09:42)
[2018-05-13] MEDS: PANTOPRAZOLE 20 MG TABLET (FP) PO SCH (09:42)
[2018-05-13] MEDS: amLODIPine BESYLATE 5 MG TABLET (FP) PO SCH (09:42)
[2018-05-13] MEDS: PRENATAL VITAMINS W/ FOLIC ACID TABLET (FP) PO SCH (09:42)
[2018-05-13] MEDS: busPIRone HCL 10 MG TABLET (FP) PO SCH ×2 (09:42→19:46)
[2018-05-13] MEDS: PSYLLIUM 5.85 GM PACKET PO SCH ×2 (09:44→19:50)
[2018-05-13] MEDS: METHYL SALICYLATE/MENTHOL OINT 30 GM TUBE TP SCH ×2 (09:44→23:46)
[2018-05-13] MEDS: LIDOCAINE 5% TOPICAL PATCH TP SCH (09:44)
[2018-05-13] MEDS: ALLOPURINOL 300 MG TABLET (FP) PO SCH (10:38)
[2018-05-13] MEDS: IBUPROFEN 400 MG TABLET (FP) PO PRN (15:46)
[2018-05-13] MEDS: MELATONIN 5 MG TABLETS PO PRN (19:45)
[2018-05-13] MEDS: THIAMINE HCL 100 MG TABLET (FP) PO SCH (19:45)
[2018-05-13] MEDS: AMITRIPTYLINE HCL 25 MG TABLET (FP) PO SCH (19:46)
[2018-05-13] MEDS: rOPINIRole HCL 0.5 MG TABLET PO SCH (19:50)
[2018-05-13] MEDS: ATORVASTATIN CA 10 MG TABLET (FP) PO SCH (23:46)
[2018-05-14] MEDS: GABAPENTIN 300 MG CAPSULE (FP) PO SCH ×3 (05:48→19:55)
[2018-05-14] MEDS: ACAMPROSATE CALCIUM 333 MG TABLET.DR PO SCH ×3 (05:48→19:56)
[2018-05-14] MEDS ORDERED: PT OWN MED DRAWER 7, Y5N ONE ×3 (05:48→10:46)
[2018-05-14] MEDS: IBUPROFEN 400 MG TABLET (FP) PO PRN (05:52)
[2018-05-14] MEDS: PSYLLIUM 5.85 GM PACKET PO SCH ×2 (07:28→19:58)
[2018-05-14] MEDS: LIDOCAINE 5% TOPICAL PATCH TP SCH (10:01)
[2018-05-14] MEDS: ALLOPURINOL 300 MG TABLET (FP) PO SCH (10:02)
[2018-05-14] MEDS: NICOTINE POLACRILEX 2 MG GUM BC PRN ×2 (10:02→14:12)
[2018-05-14] MEDS: NICOTINE 14 MG/24 HOURS TOPICAL PATCH TD SCH (10:02)
[2018-05-14] MEDS: amLODIPine BESYLATE 5 MG TABLET (FP) PO SCH (10:03)
[2018-05-14] MEDS: busPIRone HCL 10 MG TABLET (FP) PO SCH ×2 (10:03→19:56)
[2018-05-14] MEDS: PRENATAL VITAMINS W/ FOLIC ACID TABLET (FP) PO SCH (10:03)
[2018-05-14] MEDS: PANTOPRAZOLE 20 MG TABLET (FP) PO SCH (10:03)
[2018-05-14] MEDS: ACETAMINOPHEN 325 MG TABLET (FP) PO PRN ×2 (10:04→14:11)
[2018-05-14] MEDS: SERTRALINE HCL 50 MG TABLET (FP) PO SCH (10:04)
[2018-05-14] MEDS: METHYL SALICYLATE/MENTHOL OINT 30 GM TUBE TP SCH ×2 (10:04→23:15)
[2018-05-14] MEDS: MINERAL OIL/PETROLAT/WATER TOPICAL CREAM 454 GM JAR TP PRN (10:05)
[2018-05-14] MEDS: AMITRIPTYLINE HCL 25 MG TABLET (FP) PO SCH (19:55)
[2018-05-14] MEDS: LIDOCAINE PATCH REMOVAL MC SCH (19:56)
[2018-05-14] MEDS: MELATONIN 5 MG TABLETS PO PRN (19:58)
[2018-05-14] MEDS: THIAMINE HCL 100 MG TABLET (FP) PO SCH (19:59)
[2018-05-14] MEDS: rOPINIRole HCL 0.5 MG TABLET PO SCH (19:59)
[2018-05-14] MEDS: ATORVASTATIN CA 10 MG TABLET (FP) PO SCH (23:15)
[2018-05-15] MEDS: GABAPENTIN 300 MG CAPSULE (FP) PO SCH ×3 (06:08→19:51)
[2018-05-15] MEDS: ACAMPROSATE CALCIUM 333 MG TABLET.DR PO SCH ×3 (06:08→19:54)
[2018-05-15] MEDS: PSYLLIUM 5.85 GM PACKET PO SCH ×2 (09:00→21:46)
[2018-05-15] MEDS ORDERED: PT OWN MED DRAWER 7, Y5N ONE ×6 (09:52→15:10)
[2018-05-15] MEDS: busPIRone HCL 10 MG TABLET (FP) PO SCH ×2 (10:19→19:53)
[2018-05-15] MEDS: LIDOCAINE 5% TOPICAL PATCH TP SCH (10:20)
[2018-05-15] MEDS: NICOTINE 14 MG/24 HOURS TOPICAL PATCH TD SCH (10:20)
[2018-05-15] MEDS: amLODIPine BESYLATE 5 MG TABLET (FP) PO SCH (10:20)
[2018-05-15] MEDS: PRENATAL VITAMINS W/ FOLIC ACID TABLET (FP) PO SCH (10:20)
[2018-05-15] MEDS: PANTOPRAZOLE 20 MG TABLET (FP) PO SCH (10:21)
[2018-05-15] MEDS: SERTRALINE HCL 50 MG TABLET (FP) PO SCH (10:21)
[2018-05-15] MEDS: ALLOPURINOL 300 MG TABLET (FP) PO SCH (10:21)
[2018-05-15] MEDS: METHYL SALICYLATE/MENTHOL OINT 30 GM TUBE TP SCH ×2 (10:22→21:48)
[2018-05-15] MEDS: IBUPROFEN 400 MG TABLET (FP) PO PRN (10:23)
[2018-05-15] MEDS: rOPINIRole HCL 0.5 MG TABLET PO SCH (19:53)
[2018-05-15] MEDS: THIAMINE HCL 100 MG TABLET (FP) PO SCH (19:53)
[2018-05-15] MEDS: AMITRIPTYLINE HCL 25 MG TABLET (FP) PO SCH (19:54)
[2018-05-15] MEDS: NICOTINE POLACRILEX 2 MG GUM BC PRN (19:56)
[2018-05-15] MEDS: MELATONIN 5 MG TABLETS PO PRN (19:56)
[2018-05-15] MEDS: LIDOCAINE PATCH REMOVAL MC SCH (21:46)
[2018-05-15] MEDS: ATORVASTATIN CA 10 MG TABLET (FP) PO SCH (21:48)
[2018-05-16] MEDS: ACAMPROSATE CALCIUM 333 MG TABLET.DR PO SCH ×3 (06:10→19:53)
[2018-05-16] MEDS: GABAPENTIN 300 MG CAPSULE (FP) PO SCH ×3 (06:11→19:52)
[2018-05-16] MEDS: PSYLLIUM 5.85 GM PACKET PO SCH ×2 (09:00→19:52)
[2018-05-16] MEDS: LIDOCAINE 5% TOPICAL PATCH TP SCH (09:04)
[2018-05-16] MEDS: busPIRone HCL 10 MG TABLET (FP) PO SCH ×2 (09:04→19:52)
[2018-05-16] MEDS: METHYL SALICYLATE/MENTHOL OINT 30 GM TUBE TP SCH ×2 (09:04→21:21)
[2018-05-16] MEDS: amLODIPine BESYLATE 5 MG TABLET (FP) PO SCH (09:05)
[2018-05-16] MEDS: ALLOPURINOL 300 MG TABLET (FP) PO SCH (09:05)
[2018-05-16] MEDS: PRENATAL VITAMINS W/ FOLIC ACID TABLET (FP) PO SCH (09:05)
[2018-05-16] MEDS: SERTRALINE HCL 50 MG TABLET (FP) PO SCH (09:05)
[2018-05-16] MEDS: PANTOPRAZOLE 20 MG TABLET (FP) PO SCH (09:05)
[2018-05-16] MEDS: NICOTINE 14 MG/24 HOURS TOPICAL PATCH TD SCH (09:05)
[2018-05-16] MEDS: NICOTINE POLACRILEX 2 MG GUM BC PRN (09:06)
[2018-05-16] MEDS ORDERED: PT OWN MED DRAWER 7, Y5N ONE ×2 (10:19→19:26)
[2018-05-16] MEDS: ACETAMINOPHEN 325 MG TABLET (FP) PO PRN (13:42)
[2018-05-16] MEDS: AMITRIPTYLINE HCL 25 MG TABLET (FP) PO SCH (19:52)
[2018-05-16] MEDS: rOPINIRole HCL 0.5 MG TABLET PO SCH (19:53)
[2018-05-16] MEDS: LIDOCAINE PATCH REMOVAL MC SCH (19:53)
[2018-05-16] MEDS: THIAMINE HCL 100 MG TABLET (FP) PO SCH (19:53)
[2018-05-16] MEDS: MELATONIN 5 MG TABLETS PO PRN (19:54)
[2018-05-16] MEDS: ATORVASTATIN CA 10 MG TABLET (FP) PO SCH (21:21)
[2018-05-17] MEDS: ACAMPROSATE CALCIUM 333 MG TABLET.DR PO SCH ×3 (06:27→19:52)
[2018-05-17] MEDS: ACETAMINOPHEN 325 MG TABLET (FP) PO PRN (06:27)
[2018-05-17] MEDS: GABAPENTIN 300 MG CAPSULE (FP) PO SCH ×3 (06:28→19:53)
[2018-05-17] MEDS: NICOTINE POLACRILEX 2 MG GUM BC PRN (06:30)
[2018-05-17] MEDS: PSYLLIUM 5.85 GM PACKET PO SCH ×2 (09:59→19:55)
[2018-05-17] MEDS: PRENATAL VITAMINS W/ FOLIC ACID TABLET (FP) PO SCH (10:00)
[2018-05-17] MEDS: ALLOPURINOL 300 MG TABLET (FP) PO SCH (10:00)
[2018-05-17] MEDS: SERTRALINE HCL 50 MG TABLET (FP) PO SCH (10:00)
[2018-05-17] MEDS: amLODIPine BESYLATE 5 MG TABLET (FP) PO SCH (10:00)
[2018-05-17] MEDS: busPIRone HCL 10 MG TABLET (FP) PO SCH ×2 (10:00→19:52)
[2018-05-17] MEDS: PANTOPRAZOLE 20 MG TABLET (FP) PO SCH (10:00)
[2018-05-17] MEDS: METHYL SALICYLATE/MENTHOL OINT 30 GM TUBE TP SCH ×2 (10:01→23:05)
[2018-05-17] MEDS: MINERAL OIL/PETROLAT/WATER TOPICAL CREAM 454 GM JAR TP PRN (10:01)
[2018-05-17] MEDS: LIDOCAINE 5% TOPICAL PATCH TP SCH (10:01)
[2018-05-17] MEDS: NICOTINE 14 MG/24 HOURS TOPICAL PATCH TD SCH (10:01)
[2018-05-17] MEDS ORDERED: PT OWN MED DRAWER 7, Y5N ONE ×3 (10:04→19:50)
[2018-05-17] MEDS: ERGOCALCIFEROL (VITAMIN D2) 50,000 UNIT CAPSULE (FP) PO SCH (10:38)
[2018-05-17] MEDS: THIAMINE HCL 100 MG TABLET (FP) PO SCH (19:51)
[2018-05-17] MEDS: AMITRIPTYLINE HCL 25 MG TABLET (FP) PO SCH (19:52)
[2018-05-17] MEDS: LIDOCAINE PATCH REMOVAL MC SCH (19:55)
[2018-05-17] MEDS: rOPINIRole HCL 0.5 MG TABLET PO SCH (19:55)
[2018-05-17] MEDS: ATORVASTATIN CA 10 MG TABLET (FP) PO SCH (21:35)
[2018-05-18] MEDS: ACAMPROSATE CALCIUM 333 MG TABLET.DR PO SCH ×3 (06:02→19:55)
[2018-05-18] MEDS: GABAPENTIN 300 MG CAPSULE (FP) PO SCH ×3 (06:03→19:45)
[2018-05-18] MEDS: PSYLLIUM 5.85 GM PACKET PO SCH ×2 (07:27→19:55)
[2018-05-18] MEDS ORDERED: PT OWN MED DRAWER 7, Y5N ONE ×4 (09:19→19:43)
[2018-05-18] MEDS: PANTOPRAZOLE 20 MG TABLET (FP) PO SCH (10:10)
[2018-05-18] MEDS: NICOTINE 14 MG/24 HOURS TOPICAL PATCH TD SCH (10:10)
[2018-05-18] MEDS: PRENATAL VITAMINS W/ FOLIC ACID TABLET (FP) PO SCH (10:10)
[2018-05-18] MEDS: METHYL SALICYLATE/MENTHOL OINT 30 GM TUBE TP SCH ×2 (10:10→22:45)
[2018-05-18] MEDS: LIDOCAINE 5% TOPICAL PATCH TP SCH (10:10)
[2018-05-18] MEDS: busPIRone HCL 10 MG TABLET (FP) PO SCH ×2 (10:11→19:46)
[2018-05-18] MEDS: ALLOPURINOL 300 MG TABLET (FP) PO SCH (10:11)
[2018-05-18] MEDS: amLODIPine BESYLATE 5 MG TABLET (FP) PO SCH (10:11)
[2018-05-18] MEDS: SERTRALINE HCL 50 MG TABLET (FP) PO SCH (10:11)
[2018-05-18] MEDS: IBUPROFEN 400 MG TABLET (FP) PO PRN (10:12)
[2018-05-18] MEDS: ACETAMINOPHEN 325 MG TABLET (FP) PO PRN (13:57)
[2018-05-18] MEDS: THIAMINE HCL 100 MG TABLET (FP) PO SCH (19:46)
[2018-05-18] MEDS: AMITRIPTYLINE HCL 25 MG TABLET (FP) PO SCH (19:46)
[2018-05-18] MEDS: MELATONIN 5 MG TABLETS PO PRN (19:47)
[2018-05-18] MEDS: rOPINIRole HCL 0.5 MG TABLET PO SCH (19:53)
[2018-05-18] MEDS: LIDOCAINE PATCH REMOVAL MC SCH (19:53)
[2018-05-18] MEDS: ATORVASTATIN CA 10 MG TABLET (FP) PO SCH (22:45)
[2018-05-19] MEDS: GABAPENTIN 300 MG CAPSULE (FP) PO SCH ×3 (06:36→19:50)
[2018-05-19] MEDS: ACAMPROSATE CALCIUM 333 MG TABLET.DR PO SCH ×3 (06:36→19:50)
[2018-05-19] MEDS: PSYLLIUM 5.85 GM PACKET PO SCH ×2 (07:27→19:51)
[2018-05-19] MEDS ORDERED: PT OWN MED DRAWER 7, Y5N ONE ×3 (09:03→23:04)
[2018-05-19] MEDS: LIDOCAINE 5% TOPICAL PATCH TP SCH (10:29)
[2018-05-19] MEDS: NICOTINE 14 MG/24 HOURS TOPICAL PATCH TD SCH (10:32)
[2018-05-19] MEDS: busPIRone HCL 10 MG TABLET (FP) PO SCH ×2 (10:32→19:50)
[2018-05-19] MEDS: METHYL SALICYLATE/MENTHOL OINT 30 GM TUBE TP SCH ×2 (10:32→23:10)
[2018-05-19] MEDS: amLODIPine BESYLATE 5 MG TABLET (FP) PO SCH (10:33)
[2018-05-19] MEDS: PRENATAL VITAMINS W/ FOLIC ACID TABLET (FP) PO SCH (10:33)
[2018-05-19] MEDS: PANTOPRAZOLE 20 MG TABLET (FP) PO SCH (10:33)
[2018-05-19] MEDS: ALLOPURINOL 300 MG TABLET (FP) PO SCH (10:34)
[2018-05-19] MEDS: SERTRALINE HCL 50 MG TABLET (FP) PO SCH (10:34)
[2018-05-19] MEDS: AMITRIPTYLINE HCL 25 MG TABLET (FP) PO SCH (19:50)
[2018-05-19] MEDS: hydrOXYzine PAMOATE 25 MG CAPSULE (FP) PO PRN (19:50)
[2018-05-19] MEDS: LIDOCAINE PATCH REMOVAL MC SCH (19:51)
[2018-05-19] MEDS: rOPINIRole HCL 0.5 MG TABLET PO SCH (19:52)
[2018-05-19] MEDS: MELATONIN 5 MG TABLETS PO PRN (19:52)
[2018-05-19] MEDS: THIAMINE HCL 100 MG TABLET (FP) PO SCH (19:52)
[2018-05-19] MEDS: ATORVASTATIN CA 10 MG TABLET (FP) PO SCH (23:11)
[2018-05-20] MEDS: ACAMPROSATE CALCIUM 333 MG TABLET.DR PO SCH ×3 (06:20→19:40)
[2018-05-20] MEDS: GABAPENTIN 300 MG CAPSULE (FP) PO SCH ×3 (06:21→19:42)
[2018-05-20] MEDS: PSYLLIUM 5.85 GM PACKET PO SCH ×2 (07:45→19:42)
[2018-05-20] MEDS: MINERAL OIL/PETROLAT/WATER TOPICAL CREAM 454 GM JAR TP PRN (09:41)
[2018-05-20] MEDS: amLODIPine BESYLATE 5 MG TABLET (FP) PO SCH (09:41)
[2018-05-20] MEDS: NICOTINE 14 MG/24 HOURS TOPICAL PATCH TD SCH (09:41)
[2018-05-20] MEDS: ALLOPURINOL 300 MG TABLET (FP) PO SCH (09:41)
[2018-05-20] MEDS: LIDOCAINE 5% TOPICAL PATCH TP SCH (09:41)
[2018-05-20] MEDS: METHYL SALICYLATE/MENTHOL OINT 30 GM TUBE TP SCH ×2 (09:41→23:12)
[2018-05-20] MEDS: busPIRone HCL 10 MG TABLET (FP) PO SCH ×2 (09:41→19:40)
[2018-05-20] MEDS: PRENATAL VITAMINS W/ FOLIC ACID TABLET (FP) PO SCH (09:42)
[2018-05-20] MEDS: SERTRALINE HCL 50 MG TABLET (FP) PO SCH (09:42)
[2018-05-20] MEDS: PANTOPRAZOLE 20 MG TABLET (FP) PO SCH (09:42)
[2018-05-20] MEDS: ACETAMINOPHEN 325 MG TABLET (FP) PO PRN (12:25)
[2018-05-20] MEDS ORDERED: PT OWN MED DRAWER 7, Y5N ONE ×3 (19:39→22:23)
[2018-05-20] MEDS: AMITRIPTYLINE HCL 25 MG TABLET (FP) PO SCH (19:40)
[2018-05-20] MEDS: THIAMINE HCL 100 MG TABLET (FP) PO SCH (19:40)
[2018-05-20] MEDS: MELATONIN 5 MG TABLETS PO PRN (19:42)
[2018-05-20] MEDS: LIDOCAINE PATCH REMOVAL MC SCH (19:42)
[2018-05-20] MEDS: rOPINIRole HCL 0.5 MG TABLET PO SCH (19:43)
[2018-05-20] MEDS: ATORVASTATIN CA 10 MG TABLET (FP) PO SCH (22:40)
[2018-05-21] MEDS: GABAPENTIN 300 MG CAPSULE (FP) PO SCH ×3 (06:11→19:44)
[2018-05-21] MEDS: ACAMPROSATE CALCIUM 333 MG TABLET.DR PO SCH ×3 (06:11→19:45)
[2018-05-21] MEDS: PSYLLIUM 5.85 GM PACKET PO SCH ×2 (07:09→19:44)
[2018-05-21] MEDS ORDERED: PT OWN MED DRAWER 7, Y5N ONE ×5 (08:54→19:49)
[2018-05-21] MEDS: ALLOPURINOL 300 MG TABLET (FP) PO SCH (10:10)
[2018-05-21] MEDS: PANTOPRAZOLE 20 MG TABLET (FP) PO SCH (10:10)
[2018-05-21] MEDS: amLODIPine BESYLATE 5 MG TABLET (FP) PO SCH (10:10)
[2018-05-21] MEDS: PRENATAL VITAMINS W/ FOLIC ACID TABLET (FP) PO SCH (10:10)
[2018-05-21] MEDS: SERTRALINE HCL 50 MG TABLET (FP) PO SCH (10:10)
[2018-05-21] MEDS: METHYL SALICYLATE/MENTHOL OINT 30 GM TUBE TP SCH ×2 (10:10→21:54)
[2018-05-21] MEDS: busPIRone HCL 10 MG TABLET (FP) PO SCH ×2 (10:10→19:44)
[2018-05-21] MEDS: NICOTINE 14 MG/24 HOURS TOPICAL PATCH TD SCH (10:11)
[2018-05-21] MEDS: LIDOCAINE 5% TOPICAL PATCH TP SCH (10:11)
[2018-05-21] MEDS: ACETAMINOPHEN 325 MG TABLET (FP) PO PRN (14:47)
[2018-05-21] MEDS: AMITRIPTYLINE HCL 25 MG TABLET (FP) PO SCH (19:43)
[2018-05-21] MEDS: THIAMINE HCL 100 MG TABLET (FP) PO SCH (19:43)
[2018-05-21] MEDS: MELATONIN 5 MG TABLETS PO PRN (19:44)
[2018-05-21] MEDS: LIDOCAINE PATCH REMOVAL MC SCH (19:45)
[2018-05-21] MEDS: rOPINIRole HCL 1 MG TABLET (FP) PO SCH (19:45)
[2018-05-21] MEDS: ATORVASTATIN CA 10 MG TABLET (FP) PO SCH (21:53)
[2018-05-22] MEDS: ACAMPROSATE CALCIUM 333 MG TABLET.DR PO SCH ×3 (06:07→19:47)
[2018-05-22] MEDS: GABAPENTIN 300 MG CAPSULE (FP) PO SCH ×3 (06:07→19:45)
[2018-05-22] MEDS: PSYLLIUM 5.85 GM PACKET PO SCH ×2 (07:26→19:47)
[2018-05-22] MEDS ORDERED: PT OWN MED DRAWER 7, Y5N ONE ×6 (08:58→22:32)
[2018-05-22] MEDS: METHYL SALICYLATE/MENTHOL OINT 30 GM TUBE TP SCH ×2 (09:57→23:21)
[2018-05-22] MEDS: MINERAL OIL/PETROLAT/WATER TOPICAL CREAM 454 GM JAR TP PRN (09:57)
[2018-05-22] MEDS: ALLOPURINOL 300 MG TABLET (FP) PO SCH (09:58)
[2018-05-22] MEDS: SERTRALINE HCL 50 MG TABLET (FP) PO SCH (09:58)
[2018-05-22] MEDS: PRENATAL VITAMINS W/ FOLIC ACID TABLET (FP) PO SCH (09:58)
[2018-05-22] MEDS: amLODIPine BESYLATE 5 MG TABLET (FP) PO SCH (09:58)
[2018-05-22] MEDS: busPIRone HCL 10 MG TABLET (FP) PO SCH ×2 (09:58→19:46)
[2018-05-22] MEDS: LIDOCAINE 5% TOPICAL PATCH TP SCH (09:59)
[2018-05-22] MEDS: PANTOPRAZOLE 20 MG TABLET (FP) PO SCH (09:59)
[2018-05-22] MEDS: NICOTINE 14 MG/24 HOURS TOPICAL PATCH TD SCH (09:59)
[2018-05-22] MEDS: ACETAMINOPHEN 325 MG TABLET (FP) PO PRN (15:14)
[2018-05-22] MEDS: MELATONIN 5 MG TABLETS PO PRN (19:45)
[2018-05-22] MEDS: AMITRIPTYLINE HCL 25 MG TABLET (FP) PO SCH (19:45)
[2018-05-22] MEDS: hydrOXYzine PAMOATE 25 MG CAPSULE (FP) PO PRN (19:45)
[2018-05-22] MEDS: LIDOCAINE PATCH REMOVAL MC SCH (19:46)
[2018-05-22] MEDS: THIAMINE HCL 100 MG TABLET (FP) PO SCH (19:47)
[2018-05-22] MEDS: rOPINIRole HCL 1 MG TABLET (FP) PO SCH (19:47)
[2018-05-22] MEDS: ATORVASTATIN CA 10 MG TABLET (FP) PO SCH (23:22)
[2018-05-23] MEDS: ACETAMINOPHEN 325 MG TABLET (FP) PO PRN ×2 (06:26→13:05)
[2018-05-23] MEDS: ACAMPROSATE CALCIUM 333 MG TABLET.DR PO SCH ×3 (06:26→19:48)
[2018-05-23] MEDS: GABAPENTIN 300 MG CAPSULE (FP) PO SCH ×3 (06:26→19:46)
[2018-05-23] MEDS ORDERED: PT OWN MED DRAWER 7, Y5N ONE ×4 (08:41→22:39)
[2018-05-23] MEDS: PRENATAL VITAMINS W/ FOLIC ACID TABLET (FP) PO SCH (09:39)
[2018-05-23] MEDS: SERTRALINE HCL 50 MG TABLET (FP) PO SCH (09:40)
[2018-05-23] MEDS: NICOTINE 14 MG/24 HOURS TOPICAL PATCH TD SCH (09:40)
[2018-05-23] MEDS: amLODIPine BESYLATE 5 MG TABLET (FP) PO SCH (09:41)
[2018-05-23] MEDS: ALLOPURINOL 300 MG TABLET (FP) PO SCH (09:41)
[2018-05-23] MEDS: LIDOCAINE 5% TOPICAL PATCH TP SCH (09:41)
[2018-05-23] MEDS: busPIRone HCL 10 MG TABLET (FP) PO SCH ×2 (09:41→19:48)
[2018-05-23] MEDS: METHYL SALICYLATE/MENTHOL OINT 30 GM TUBE TP SCH ×2 (09:41→22:50)
[2018-05-23] MEDS: PANTOPRAZOLE 20 MG TABLET (FP) PO SCH (09:42)
[2018-05-23] MEDS: PSYLLIUM 5.85 GM PACKET PO SCH ×2 (10:34→19:48)
[2018-05-23] MEDS: MELATONIN 5 MG TABLETS PO PRN (19:46)
[2018-05-23] MEDS: AMITRIPTYLINE HCL 25 MG TABLET (FP) PO SCH (19:46)
[2018-05-23] MEDS: THIAMINE HCL 100 MG TABLET (FP) PO SCH (19:46)
[2018-05-23] MEDS: hydrOXYzine PAMOATE 25 MG CAPSULE (FP) PO PRN (19:47)
[2018-05-23] MEDS: rOPINIRole HCL 1 MG TABLET (FP) PO SCH (19:48)
[2018-05-23] MEDS: LIDOCAINE PATCH REMOVAL MC SCH (19:48)
[2018-05-23] MEDS: ATORVASTATIN CA 10 MG TABLET (FP) PO SCH (23:40)
[2018-05-24] MEDS ORDERED: PT OWN MED DRAWER 7, Y5N ONE ×4 (03:18→19:21)
[2018-05-24] MEDS: ACAMPROSATE CALCIUM 333 MG TABLET.DR PO SCH ×3 (06:05→19:45)
[2018-05-24] MEDS: GABAPENTIN 300 MG CAPSULE (FP) PO SCH ×3 (06:05→19:43)
[2018-05-24 06:42] VITALS: TEMP 97.8
[2018-05-24] MEDS: PSYLLIUM 5.85 GM PACKET PO SCH ×2 (07:27→19:45)
[2018-05-24 09:13] VITALS: BP 113/74; PULSE 102
[2018-05-24] MEDS: SERTRALINE HCL 50 MG TABLET (FP) PO SCH (09:48)
[2018-05-24] MEDS: ERGOCALCIFEROL (VITAMIN D2) 50,000 UNIT CAPSULE (FP) PO SCH (09:48)
[2018-05-24] MEDS: PRENATAL VITAMINS W/ FOLIC ACID TABLET (FP) PO SCH (09:49)
[2018-05-24] MEDS: amLODIPine BESYLATE 5 MG TABLET (FP) PO SCH (09:49)
[2018-05-24] MEDS: PANTOPRAZOLE 20 MG TABLET (FP) PO SCH (09:49)
[2018-05-24] MEDS: busPIRone HCL 10 MG TABLET (FP) PO SCH ×2 (09:49→19:45)
[2018-05-24] MEDS: ALLOPURINOL 300 MG TABLET (FP) PO SCH (09:53)
[2018-05-24] MEDS: METHYL SALICYLATE/MENTHOL OINT 30 GM TUBE TP SCH ×2 (09:53→21:55)
[2018-05-24] MEDS: NICOTINE 14 MG/24 HOURS TOPICAL PATCH TD SCH (09:53)
[2018-05-24] MEDS: LIDOCAINE 5% TOPICAL PATCH TP SCH (09:53)
--- NOTE | 2018-05-24 15:42 | PN ---
[facility] Progress Note Note: PT IS SCHEDULED FOR DISCHARGE IN THE MORNING. REPORTS SHE HAS ALL HER MEDS EXCEPT CAMPRAL WHICH HAS BEEN SENT ELECTRONICALLY TO HER [facility] IN [place], [place] PT REPORTS SHE HAS A PCPDR. ERA DAVEY AT [facility] ON [place], [place]. PT IS ALERT O X 3. Vital Signs 05/24/18 09:13 Pulse Rate 102 H Blood Pressure 113/74 Laboratory Tests 04/28/18 04/28/18 04/28/18 07:45 07:45 07:45 WBC 3.4 L RBC 3.96 Hgb 11.7 Hct 35.2 MCV 88.9 MCH 29.6 MCHC 33.3 RDW 29.4 H Plt Count 370 D MPV 7.6 Sodium 141 Potassium 4.3 Chloride 109 H Carbon Dioxide 24 Anion Gap 8 BUN 14 Creatinine 0.8 Creat Clearance w eGFR 77.57 POC Glucometer Random Glucose 160 H Calcium 8.9 Total Bilirubin 0.2 AST 25 ALT 37 Alkaline Phosphatase 116 Total Protein 6.8 Albumin 3.8 Urine Color Urine Appearance Urine pH Ur Specific [place] Urine Protein Urine Glucose (UA) Urine Ketones Urine Blood Urine Nitrite Urine Bilirubin Urine Urobilinogen Ur Leukocyte Esterase POC Urine HCG, Qual RPR Titer Nonreactive 04/28/18 04/28/18 04/29/18 12:10 16:51 06:18 WBC RBC Hgb Hct MCV MCH MCHC RDW Plt Count MPV Sodium Potassium Chloride Carbon Dioxide Anion Gap BUN Creatinine Creat Clearance w eGFR POC Glucometer 94 104 Random Glucose Calcium Total Bilirubin AST ALT Alkaline Phosphatase Total Protein Albumin Urine Color Dk yellow Urine Appearance Clear Urine pH 8.0 D Ur Specific [place] 1.017 Urine Protein Negative Urine Glucose (UA) Negative Urine Ketones Negative Urine Blood Negative Urine Nitrite Negative Urine Bilirubin Negative Urine Urobilinogen 0.2 Ur Leukocyte Esterase Negative POC Urine HCG, Qual RPR Titer 04/29/18 04/30/18 04/30/18 16:49 06:45 16:43 WBC RBC Hgb Hct MCV MCH MCHC RDW Plt Count MPV Sodium Potassium Chloride Carbon Dioxide Anion Gap BUN Creatinine Creat Clearance w eGFR POC Glucometer 138 97 108 Random Glucose Calcium Total Bilirubin AST ALT Alkaline Phosphatase Total Protein Albumin Urine Color Urine Appearance Urine pH Ur Specific [place] Urine Protein Urine Glucose (UA) Urine Ketones Urine Blood Urine Nitrite Urine Bilirubin Urine Urobilinogen Ur Leukocyte Esterase POC Urine HCG, Qual RPR Titer 05/01/18 05/01/18 05/05/18 06:41 16:35 13:24 WBC RBC Hgb Hct MCV MCH MCHC RDW Plt Count MPV Sodium Potassium Chloride Carbon Dioxide Anion Gap BUN Creatinine Creat Clearance w eGFR POC Glucometer 102 100 Random Glucose Calcium Total Bilirubin AST ALT Alkaline Phosphatase Total Protein Albumin Urine Color Urine Appearance Urine pH Ur Specific [place] Urine Protein Urine Glucose (UA) Urine Ketones Urine Blood Urine Nitrite Urine Bilirubin Urine Urobilinogen Ur Leukocyte Esterase POC Urine HCG, Qual Negative RPR Titer PLAN:D/C IN A.M SCHEDULED.
[2018-05-24] MEDS: LIDOCAINE PATCH REMOVAL MC SCH (19:45)
[2018-05-24] MEDS: AMITRIPTYLINE HCL 25 MG TABLET (FP) PO SCH (19:45)
[2018-05-24] MEDS: THIAMINE HCL 100 MG TABLET (FP) PO SCH (19:46)
[2018-05-24] MEDS: MELATONIN 5 MG TABLETS PO PRN (19:47)
[2018-05-24] MEDS: rOPINIRole HCL 1 MG TABLET (FP) PO SCH (19:48)
[2018-05-24] MEDS: ATORVASTATIN CA 10 MG TABLET (FP) PO SCH (21:55)
[2018-05-25] MEDS ORDERED: PT OWN MED DRAWER 7, Y5N ONE (03:18)
[2018-05-25] MEDS: ACAMPROSATE CALCIUM 333 MG TABLET.DR PO SCH (06:07)
[2018-05-25] MEDS: GABAPENTIN 300 MG CAPSULE (FP) PO SCH (06:08)
--- NOTE | 2018-05-25 10:01 | PN ---
[facility] Progress Note Note: PT COMPLETED REHAB AND DISCHARGED TODAY. PT HAS BEEN REFERR[facility] TO [facility] ON [address],[place], [place] AND GOING BACK TO [facility] [address] [facility], [facility], [place], [place]. ALERT O X 3. DENIES S/H/I. PT HAS HER MEDS AT HOME. RX FOR CAMPRAL BELOW SENT TO HER PHARMACY. Home Medications Medication Instructions Recorded Buspirone HCl 15 mg PO BID 12/31/16 Ergocalciferol (Vitamin D2) 50,000 unit PO WEEKLY 12/31/16 [Vitamin D2] Folic Acid - 1 mg PO DAILY 12/31/16 Ropinirole HCl [Requip -] 1 mg PO HS 12/31/16 Atorvastatin Ca [Lipitor] 10 mg PO HS #30 tablet 01/27/17 Buspirone HCl [Buspar -] 15 mg PO BID #60 tablet 01/27/17 Quetiapine Fumarate [Seroquel -] 250 mg PO HS #120 tablet 01/27/17 Sertraline HCl [Zoloft -] 150 mg PO DAILY #90 tablet 01/27/17 Sulfasalazine [Azulfidine -] 1,000 mg PO BID #60 tablet 01/27/17 Amitriptyline HCl [Elavil -] 75 mg PO HS 04/27/18 Gabapentin [Neurontin -] 900 mg PO TID 04/27/18 Acamprosate Calcium [Campral -] 666 mg PO TID@0600,1400,2000 30 05/24/18 Days tablet. Vital Signs (72 hours) 05/23/18 05/23/18 05/23/18 00:30 03:30 07:06 Temperature 97.9 F Pulse Rate 98 H Respiratory 18 18 18 Rate Blood Pressure 104/72 05/23/18 05/24/18 05/24/18 09:02 03:30 06:39 Temperature 97.8 F Pulse Rate 94 H 89 Respiratory 18 16 Rate Blood Pressure 115/77 136/84 05/24/18 09:13 Temperature Pulse Rate 102 H Respiratory Rate Blood Pressure 113/74 NAD MEDICALLY STABLE PLAN:FOLLOW UP WITH TREATMENT RECOMMENDATIONS ABOVE.
== END 2018-05-25 06:32 | disposition home or self-care (01) | DRG 895 ==
LOC: YASAS 15:20 → Y3E 21:04
PROVIDERS: ADMIT Surgery; ATTEND Surgery
PROC: HZ42ZZZ Group Counseling for Substance Abuse Treatment, Cognitive-Behavioral (ICD-10-PCS; principal; 2018-04-27)
DX: F19.20 Other psychoactive substance dependence, uncomplicated (principal); F10.282 Alcohol dependence with alcohol-induced sleep disorder; F17.210 Nicotine dependence, cigarettes, uncomplicated; F32.9 Major depressive disorder, single episode, unspecified; I10 Essential (primary) hypertension; M06.9 Rheumatoid arthritis, unspecified; M79.7 Fibromyalgia; K21.9 Gastro-esophageal reflux disease without esophagitis; E78.5 Hyperlipidemia, unspecified; G47.30 Sleep apnea, unspecified; M10.9 Gout, unspecified; M81.0 Age-related osteoporosis without current pathological fracture; D50.9 Iron deficiency anemia, unspecified; Z98.84 Bariatric surgery status; Z90.710 Acquired absence of both cervix and uterus; E66.9 Obesity, unspecified; Z68.35 Body mass index [BMI] 35.0-35.9, adult
CPT/HCPCS: 36415; 80053; 81003; 82962; 85027; 86593; 93005; 93010